=== PATIENT | female | born 1990 | race Caucasian/White ===

== ENCOUNTER → 2019-09-02 11:01 | Outpatient (BNVA) | payer OTHER, MEDICAID, SELFPAY | PROVIDERS: Visit Provider Obstetrics & Gynecology | DX: Z30.017 Encounter for initial prescription of implantable subdermal contraceptive (principal) | CPT/HCPCS: 81025 ==

== ENCOUNTER 2019-09-11 18:21 | Emergency (ER) | payer OTHER, MEDICAID, SELFPAY ==
[2019-09-11 18:29] VITALS: BP 118/71; PULSE 80; RESP 12; TEMP 36.9; O2SAT 100; BMI 29.2
--- NOTE | 2019-09-11 18:46 | W.ED.EXTPRO ---
HPI - Extremity Problem General: Chief complaint: Extremity Injury, Upper Stated complaint: control implant complications Time Seen by Provider: 09/11/19 18:42 History of Present Illness: HPI Narrative: Patient meli hurt her arm at work couple days ago and she had Implanon implant done a week ago and she wants to make sure that she did not injure that. Her arm does hurt she is scheduled to see a work comp doc tomorrow for the arm injury. MD Complaint: extremity pain Onset (ago): day(s) Pain Consistency: constant Location: left and upper extremity Severity scale (1-10): 3 Quality: aching Radiation: proximal and distal Relieving factors: immobilization Exacerbating factors: range of motion Associated symptoms: Deny chest pain, fever(s) or rash Review of Systems Const: Denies: fever(s), chills or body aches Eyes: Denies: change in vision or blurry vision ENMT: Denies: throat pain or nasal congestion Card: Denies: chest pain or dyspnea on exertion Resp: Denies: dyspnea, productive cough or non-productive cough GI: Denies: abdominal pain, nausea or vomiting Musc: Reports: extremity pain (Left arm pain left shoulder pain left forearm pain) Skin/Breast: Reports: other (Some bruising to left arm); Denies: rash Neuro: Denies: headache(s) Psych: Denies: anxiety or depression Wan/Lymph: Denies: easy bruising PFSH ED PFSH: Family History Father CAD (coronary artery disease) Hyperlipidemia Hypertension Stroke Mother Hyperlipidemia Thyroid condition Denies family history of Diabetes Clotting disorder Anesthesia complication Bleeding disorder Social History Smoking and tobacco status: former smoker Quit status (tobacco): has quit using tobacco Year quit tobacco: 05/07/2019 Alcohol intake: never Physical Exam Const: COMMON NORMALS: no acute distress, average body habitus and patient oriented x3 HENMT: COMMON NORMALS: normocephalic HEAD & SCALP: normal to inspection and normocephalic FACE & SINUS: normal facial exam Eye: COMMON NORMALS: conjunctivae normal GENERAL EYE: appearance normal, both eyes and all related structures CONJUNCTIVA: Yes conjunctivae normal Neck/C-Spine: COMMON NORMALS: no JVD Chest: COMMONS NORMALS: normal inspection of the chest Resp: COMMON NORMALS: normal respiratory effort and clear to auscultation bilaterally AUSCULTATION: clear to auscultation bilaterally Cardio: COMMON NORMALS: no JVD, regular rate and regular rhythm RATE: regular rate RHYTHM: regular rhythm GI: COMMON NORMALS: Normal to inspection, nondistended, normoactive bowel sounds present Extremity: COMMON NORMALS: normal to inspection and full ROM NARRATIVE EXTREMITY EXAM: Implanon feels intact approximately 3 to 4 inches long solid no breaks identified in palpation of it arm has full range of motion Neuro: COMMON NORMALS: patient oriented x3 Course Vital Signs: Vital signs: Vital Signs Temperature 98.5 F 09/11/19 18:29 Pulse Rate 80 09/11/19 18:29 Respiratory Rate 12 09/11/19 18:29 Blood Pressure 118/71 09/11/19 18:29 Pulse Oximetry 100 09/11/19 18:29 Discharge Plan Discharge Patient Disposition: Home Clinical Impression: Arm pain, left Condition: Stable Prescriptions: No Action pantoprazole [Protonix] 40 mg tablet,delayed release (DR/EC) 40 mg PO DAILY RF: 0 multivitamin Capsule 1 cap PO DAILY RF: 0 Discharge Orders: Discharge Order (Routine); Ordered 09/11/19 Ordered By: Rubio Velez Discharge Diet: Usual diet Discharge Activity: Resume usual activity Activity Restrictions/Additional Instructions: Follow-up with your work comp doctor as prescribed for your arm injury you sustained at work. Can apply ice to the arm take Tylenol ibuprofen for discomfort. Coding Level of Care Code ED Lead Game Designer for Kirit Valadez
== END 2019-09-11 19:15 | disposition home or self-care (01) ==
PROVIDERS: Emergency Provider Nurse Practitioner Family
DX: M79.602 Pain in left arm (principal); Z87.891 Personal history of nicotine dependence
CPT/HCPCS: 12345; 99281

== ENCOUNTER → 2019-09-12 11:16 | Outpatient (BNVA) | payer OTHER, SELFPAY | PROVIDERS: Visit Provider Nurse Practitioner Family | DX: M79.602 Pain in left arm (principal) | CPT/HCPCS: 73060; 73090 ==

== ENCOUNTER → 2019-10-02 15:26 | Outpatient (BNVA) | payer OTHER, MEDICAID, SELFPAY | PROVIDERS: Visit Provider Obstetrics & Gynecology | DX: N90.7 Vulvar cyst (principal) | CPT/HCPCS: 88305 ==

== ENCOUNTER → 2019-11-25 08:34 | Outpatient (BNVA) | payer OTHER, MEDICAID, SELFPAY | PROVIDERS: Visit Provider Psychiatry & Neurology Psychiatry | DX: F43.12 Post-traumatic stress disorder, chronic (principal); F33.1 Major depressive disorder, recurrent, moderate; F41.1 Generalized anxiety disorder; F10.11 Alcohol abuse, in remission | CPT/HCPCS: 99204 ==

== ENCOUNTER → 2019-12-23 07:38 | Outpatient (BNVA) | payer OTHER, MEDICAID, SELFPAY | PROVIDERS: Visit Provider Psychiatry & Neurology Psychiatry | DX: F41.1 Generalized anxiety disorder (principal); F33.1 Major depressive disorder, recurrent, moderate; F43.12 Post-traumatic stress disorder, chronic; F10.11 Alcohol abuse, in remission; F60.3 Borderline personality disorder | CPT/HCPCS: 99213 ==

== ENCOUNTER → 2020-02-24 16:58 | Outpatient (BNVA) | payer OTHER, MEDICAID, SELFPAY | PROVIDERS: Visit Provider Family Medicine | DX: K29.70 Gastritis, unspecified, without bleeding (principal); R53.83 Other fatigue; R45.0 Nervousness; Z83.3 Family history of diabetes mellitus; Z83.49 Family history of other endocrine, nutritional and metabolic diseases; Z13.6 Encounter for screening for cardiovascular disorders | CPT/HCPCS: 80053; 80061; 83036; 83690; 84439; 84443; 84481; 85025 ==

== ENCOUNTER → 2020-03-02 08:06 | Outpatient (BNVA) | payer OTHER, MEDICAID, SELFPAY | PROVIDERS: Visit Provider Psychiatry & Neurology Psychiatry | DX: F43.12 Post-traumatic stress disorder, chronic (principal); F33.1 Major depressive disorder, recurrent, moderate; F41.1 Generalized anxiety disorder; F10.11 Alcohol abuse, in remission | CPT/HCPCS: 99214 ==

== ENCOUNTER → 2020-03-08 10:50 | Outpatient (BNVA) | payer OTHER, MEDICAID, SELFPAY | PROVIDERS: Visit Provider Nurse Practitioner Family | DX: J11.1 Influenza due to unidentified influenza virus with other respiratory manifestations (principal) | CPT/HCPCS: 87400; 87635 ==

== ENCOUNTER → 2020-04-13 07:57 | Outpatient (BNVA) | payer OTHER, MEDICAID, SELFPAY | PROVIDERS: Visit Provider Psychiatry & Neurology Psychiatry | DX: F43.12 Post-traumatic stress disorder, chronic (principal); F33.1 Major depressive disorder, recurrent, moderate; F41.1 Generalized anxiety disorder; F10.11 Alcohol abuse, in remission | CPT/HCPCS: 99213 ==

== ENCOUNTER → 2020-05-18 18:00 | Outpatient (BNVA) | payer OTHER, MEDICAID, SELFPAY | PROVIDERS: Visit Provider Family Medicine | DX: E03.9 Hypothyroidism, unspecified (principal); R10.31 Right lower quadrant pain; K59.04 Chronic idiopathic constipation; F33.1 Major depressive disorder, recurrent, moderate | CPT/HCPCS: 80053; 83690; 84439; 84443; 84481; 85025 ==

== ENCOUNTER → 2020-07-20 10:13 | Outpatient (BNVA) | payer OTHER, MEDICAID, SELFPAY | PROVIDERS: Visit Provider Family Medicine | DX: E03.9 Hypothyroidism, unspecified (principal); R10.31 Right lower quadrant pain | CPT/HCPCS: 82784; 83516; 84439; 84443; 84481 ==

== ENCOUNTER → 2020-10-11 12:00 | Outpatient (BNVA) | payer OTHER, MEDICAID, SELFPAY | PROVIDERS: Visit Provider Family Medicine | DX: R10.31 Right lower quadrant pain (principal); K59.04 Chronic idiopathic constipation; F41.1 Generalized anxiety disorder; F33.1 Major depressive disorder, recurrent, moderate; E03.9 Hypothyroidism, unspecified; B37.3 Candidiasis of vulva and vagina; R31.9 Hematuria, unspecified; G43.909 Migraine, unspecified, not intractable, without status migrainosus | CPT/HCPCS: 81000; 87086 ==

== ENCOUNTER → 2020-10-27 11:35 | Outpatient (BNVA) | payer OTHER, MEDICAID, SELFPAY | PROVIDERS: Visit Provider Nurse Practitioner Family | DX: Z20.822 Contact with and (suspected) exposure to COVID-19 (principal) | CPT/HCPCS: 87426; 87635 ==

== ENCOUNTER → 2021-03-22 14:25 | Outpatient (BNVA) | payer OTHER, MEDICAID, SELFPAY | PROVIDERS: Visit Provider Family Medicine | DX: E03.9 Hypothyroidism, unspecified (principal); Z13.6 Encounter for screening for cardiovascular disorders; Z13.1 Encounter for screening for diabetes mellitus | CPT/HCPCS: 80053; 80061; 84439; 84443; 84481; 85025 ==

== ENCOUNTER 2021-04-15 14:15 | Emergency (ER) | payer OTHER, MEDICAID, SELFPAY ==
[2021-04-15 14:44] VITALS: BMI 34.3
[2021-04-15 14:47] VITALS: O2SAT 99
--- NOTE | 2021-04-15 15:11 | ED_ITS ---
HPI - COVID General: Chief Complaint: COVID symptoms Stated Complaint: N/V/D/ Time Seen by Provider: 04/15/21 14:49 Triage information: No fever, cough or shortness of breath . No known COVID + exposure last 14 days History of Present Illness: Patient is a 30-year-old female comes to the ED with abdominal pain nausea and vomiting. Patient has a past surgical history of cholecystectomy. Symptoms started 3 days ago with abdominal pain. She says the abdominal pain was in the right lower quadrant. It is described as a sharp pain and she rates it currently a 5 out of 10 when she is laying still, but it increases with movement. Today patient has had nausea and vomiting and thrown up multiple times today. Endorses some body aches and generalized weakness. Patient has not been able to keep any fluids down since she got up this morning. COVID 19 common symptoms: positive body aches, nausea and vomiting; negative fever(s), chills, non-productive cough, productive cough, dyspnea, fatigue, headache(s), throat pain, nasal congestion or diarrhea COVID 19 other sytmptoms: negative chest pain COVID Results: SARS-CoV-2 Antigen (Rapid) Negative (Negative) 10/27/20 11:50 10/27/20 SARS-CoV-2 RNA (RT-PCR) Not detected (NOT DETECTED) 10/27/20 11:35 10/27/20 Review of Systems Const: Reports: body aches; Denies: fever(s), chills or fatigue Eyes: Denies: change in vision or eye discomfort ENMT: Denies: throat pain, odynophagia, nasal discharge or nasal congestion Card: Denies: chest pain, palpitations, edema, swelling of feet/ankles, dyspnea on exertion or orthopnea Resp: Denies: dyspnea, productive cough or non-productive cough GI: Reports: abdominal pain, nausea and vomiting; Denies: diarrhea, constipation or hematochezia : Denies: flank pain, dysuria or hematuria Musc: Denies: neck pain, back pain or extremity swelling Skin/Breast: Denies: rash or new lesions Neuro: Denies: headache(s), numbness in extremities or weakness in extremities PFS ED PFSH: Medical History Constipation Surgical History H/O section S/P cholecystectomy 2014 Family History Father CAD (coronary artery disease) Hyperlipidemia Hypertension Stroke Mother Hyperlipidemia Thyroid condition Denies family history of Diabetes Clotting disorder Anesthesia complication Bleeding disorder Social History Smoking and tobacco status: former smoker Quit status (tobacco): has quit using tobacco Year quit tobacco: 05/07/2019 Second hand smoke exposure: No Alcohol intake: never History of recent travel: No Female Reproductive History: Spontaneous abortions: No Physical Exam Const: COMMON NORMALS: no acute distress, patient oriented x3 and alert GENERAL APPEARANCE: cooperative and comfortable HENMT: COMMON NORMALS: normocephalic HEAD & SCALP: normocephalic MOUTH: Normal oral and palatal mucosa present THROAT: posterior oropharynx normal and uvula midline Neck/C-Spine: COMMON NORMALS: supple GENERAL: Yes normal visual inspection Resp: COMMON NORMALS: normal respiratory effort, No retractions, No use of accessory muscles and clear to auscultation bilaterally AUSCULTATION: clear to auscultation bilaterally Cardio: COMMON NORMALS: regular rate, regular rhythm, S1 normal heart sound present, S2 normal heart sound present, No gallops present (Cardio), No clicks present (Cardio), No murmurs present (Cardio) and Peripheral pulses 2+ throughout RATE: regular rate RHYTHM: regular rhythm HEART SOUNDS: S1 normal heart sound present and S2 normal heart sound present PERIPHERAL PULSE S: Peripheral pulses 2+ throughout GI: COMMON NORMALS: Normal to inspection, nondistended, normoactive bowel sounds present, Soft to palpation and no masses PALPATION: Yes Soft to palpation and Yes Tenderness to palpation present (GI) Details: RLQ : COMMON NORMALS: Yes no CVA tenderness BLADDER/KIDNEY EXAM: Yes no CVA tenderness Back/Pelvis: COMMON NORMALS: no CVA tenderness Extremity: COMMON NORMALS: normal to inspection and no pedal edema Neuro: COMMON NORMALS: patient oriented x3 and moves all extremities SENSORIUM/ORIENTATION: Yes alert Skin: GENERAL SKIN EXAM: dry skin Course Vital Signs: Vital signs: Vital Signs Pulse Rate 81 04/15/21 18:03 Respiratory Rate 18 04/15/21 18:03 Blood Pressure 111/79 04/15/21 18:03 Pulse Oximetry 98 04/15/21 18:03 [facility] - COVID Medical Decision Making Patient is a 30-year-old female comes to the ED with abdominal pain, nausea and vomiting. Vitals are stable. She has some palpable right lower quadrant tenderness. Rest of exam is benign. Labs are unremarkable. CT of abdomen pelvis showed no acute findings. Patient was given IV fluids, Reglan and morphine. Her symptoms improved and she had no episodes of emesis here in the ED. Patient was diagnosed with abdominal pain and discharged home with a prescription for Zofran for nausea. Patient was told to follow-up with PCP in 5 to 7 days for reevaluation. Return to ED precautions given. Patient understood and agreed with plan. Lab Data I reviewed the patient's lab results. : 04/15/21 15:00 04/15/21 15:00 Radiology Impressions Abdomen/Pelvis CT 04/15/21 15:18 IMPRESSION: 1. No acute abnormality identified in the abdomen or pelvis. COMMENTS: Consistent with the [employer]'s Incidental Findings Committee white paper (J Am Sarbjit Radiol 2018): Any incidental renal lesion less than 1 cm or classified as too small to characterize, or any incidental cystic renal lesion characterized as simple-appearing, is likely benign. No follow-up imaging is recommended for these lesions per consensus recommendations based on imaging criteria. Laboratory Results WBC 9.1 10^3/uL (4.0-10.0) 04/15/21 15:00 RBC 4.80 10^6/uL (4.1-5.3) 04/15/21 15:00 Hgb 14.4 g/dL (11.5-15.3) 04/15/21 15:00 Hct 42.7 % (37.0-47.0) 04/15/21 15:00 MCV 89.0 fl (81-99) 04/15/21 15:00 MCH 30.0 pg (28.0-34.0) 04/15/21 15:00 MCHC 33.7 g/dL (30.0-36.0) 04/15/21 15:00 RDW 11.9 % (12.1-15.1) L 04/15/21 15:00 Plt Count 312 10^3/cmm (130-400) 02/25/22 15:00 MPV 9.2 fL (7.4-10.4) 04/15/21 15:00 Neut % (Auto) 56.7 % 04/15/21 15:00 Lymph % (Auto) 31.5 % 04/15/21 15:00 Cache % (Auto) 7.4 % 04/15/21 15:00 Eos % (Auto) 3.1 % 04/15/21 15:00 Baso % (Auto) 0.9 % 04/15/21 15:00 Neut # (Auto) 5.14 10^3/uL (1.8-7.7) 04/15/21 15:00 Lymph # (Auto) 2.9 10^3/uL (0.8-4.8) 04/15/21 15:00 Cache # (Auto) 0.7 10^3/uL (0.2-0.9) 04/15/21 15:00 Eos # (Auto) 0.3 10^3/uL (0.0-0.8) 04/15/21 15:00 Baso # (Auto) 0.1 10^3/uL (0.0-0.1) 04/15/21 15:00 Nucleated RBC % (auto) 0 % 04/15/21 15:00 Nucleated RBCs # 0.0 /100WBC 04/15/21 15:00 Sodium 138 mmol/L (136-145) 04/15/21 15:00 Potassium 4.1 mmol/L (3.5-5.1) 04/15/21 15:00 Chloride 102 mmol/L (98-107) 04/15/21 15:00 Carbon Dioxide 23 mmol/L (22-29) 04/15/21 15:00 Anion Gap 17.1 (5-19) 04/15/21 15:00 BUN 12 mg/dL (6-20) 04/15/21 15:00 Creatinine 0.5 mg/dL (0.5-0.9) 04/15/21 15:00 GFR Calculation 143.9 mL/min (90-130) H 04/15/21 15:00 Glucose 98 mg/dL (65-115) 04/15/21 15:00 Calculated Osmolality 286 mOsm/kg (285-295) 04/15/21 15:00 Calcium 9.9 mg/dL (8.5-10.5) 04/15/21 15:00 Total Bilirubin 0.4 mg/dL (0.15-1.2) 04/15/21 15:00 AST 21 U/L (0-32) 04/15/21 15:00 ALT 17 U/L (0-33) 04/15/21 15:00 Alkaline Phosphatase 84 IU/L (35-105) 04/15/21 15:00 Total Protein 7.2 g/dL (6.6-8.7) 04/15/21 15:00 Albumin 4.5 g/dL (3.5-5.2) 04/15/21 15:00 Globulin 2.7 g/dL (1.3-4.6) 04/15/21 15:00 Lipase 45 U/L (13-60) 04/15/21 15:00 HCG, Qual Negative (Negative) 04/15/21 15:00 Urine Color Yellow (Yellow) 04/15/21 15:00 Urine Appearance Hazy (CLEAR) A 04/15/21 15:00 Urine pH 6 (5-7) 04/15/21 15:00 Ur Specific [place] 1.020 (1.005-1.030) 04/15/21 15:00 Urine Protein Neg (Negative) 04/15/21 15:00 Urine Glucose (UA) Norm (Normal) 04/15/21 15:00 Urine Ketones Negative (Negative) 04/15/21 15:00 Urine Blood Neg (Negative) 04/15/21 15:00 Urine Nitrate Negative (Negative) 04/15/21 15:00 Urine Bilirubin Neg (Negative) 04/15/21 15:00 Urine Urobilinogen Neg mg/dL (Negative) 04/15/21 15:00 Ur Leukocyte Esterase Negative (Negative) 04/15/21 15:00 Urine RBC Rare /hpf (0-2) 04/15/21 15:00 Urine WBC Rare /hpf (0-5) 04/15/21 15:00 Ur Squamous Epith Cells 15-25 /hpf (0-5) H 04/15/21 15:00 Amorphous Sediment Not Reportable 04/15/21 15:00 Urine Bacteria 1+ /hpf (NONE) H 04/15/21 15:00 SARS-CoV-2 Antigen (Rapid) Negative (Negative) 10/27/20 11:50 10/27/20 SARS-CoV-2 RNA (RT-PCR) Not detected (NOT DETECTED) 10/27/20 11:35 10/27/20 Discharge Plan Discharge Patient Disposition: Home Clinical Impression: Abdominal pain Qualifiers: Abdominal location: right lower quadrant Qualified Code(s): R10.31 - Right lower quadrant pain Condition: Stable Prescriptions: New ondansetron 4 mg tablet,disintegrating 4 mg PO Q8H PRN (Reason: nausea and vomiting) Qty: 20 0RF No Action albuterol sulfate 90 mcg/actuation HFA aerosol inhaler 2 puff inhalation Q6H PRN (Reason: shortness of breath or wheezing) Qty: 8.5 0RF hydroxyzine HCl 50 mg tablet 50 mg PO QID PRN (Reason: anxiety) Qty: 120 2RF rizatriptan [Maxalt-INVENTORY CONTROL ASSISTANT] 10 mg tablet,disintegrating 10 mg PO Q2H PRN (Reason: migraine headache) Qty: 9 2RF Rx Instructions: may repeat once 2 hours after first dose.do not exceed 2 doses/24 hrs.take earliest onset omeprazole 20 mg capsule,delayed release(DR/EC) 20 mg PO BID 30 Days Qty: 60 5RF Nexplanon 68 mg implant 1 implant SUBDERMAL .EVERY 3 YEARS 0RF Multivitamin Gummies 200 mcg Tablet,Chewable 2 tab PO DAILY 0RF Collagen Plus Biotin 3 tab PO BEDTIME 0RF amitriptyline 25 mg tablet 25 mg PO BEDTIME 0RF Discharge Orders: Discharge ED (Routine); Ordered 04/15/21 Ordered By: Jonatan Kaiser Referrals: Kari Mckeon MD [Primary Care Provider] - Discharge Diet: Advance as tolerated and Clear Liquid Discharge Activity: Increase activity as tolerated Patient Instructions: Abdominal Pain (ED) Activity Restrictions/Additional Instructions: Follow-up with medical provider as directed in 5-7 days for reevaluation. Take medications as prescribed. Make sure you drink plenty fluids and stay hydrated. Return to the ER or your medical provider if condition worsens. Please read and understand discharge instructions. Thank you for choosing [facility] for your healthcare needs today. Please realize this is an emergency room and that we are providing you with a medical screening exam and this may not be complete and all inclusive of all the testing and or work up that you may need to determine your ailment or severity of your illness. It is very important that you follow up as instructed or that you return to the Emergency Department should you have concerns or if your condition changes or worsens in any way. Coding Level of Care Code ED Child Psychologist for Kirit Valadez Exam Comprehensive
[2021-04-15 15:17] LABS: Basophils # 0.1 10^3/uL (0.0-0.1); Basophils % 0.9 %; Eosinophils # 0.3 10^3/uL (0.0-0.8); Eosinophils % 3.1 %; Hematocrit 42.7 % (37.0-47.0); Hemoglobin 14.4 g/dL (11.5-15.3); Lymphocytes # 2.9 10^3/uL (0.8-4.8); Lymphocytes % 31.5 %; Mean Corpuscular HGB Conc 33.7 g/dL (30.0-36.0); Mean Platelet Volume 9.2 fL (7.4-10.4); Monocytes # 0.7 10^3/uL (0.2-0.9); Monocytes % 7.4 %; Neutrophils # 5.14 10^3/uL (1.8-7.7); Neutrophils % 56.7 %; Nucleated Red Blood Cells % 0 %; Platelet Count 312 10^3/cmm (130-400); Red Cell Distribution Width 11.9 % (12.1-15.1); White Blood Count 9.1 10^3/uL (4.0-10.0)
--- NOTE | 2021-04-15 15:18 | CTR_ITS ---
PROCEDURE INFORMATION: Exam: CT Abdomen And Pelvis With Contrast Exam date and time: 04/15/2021 3:18 PM Age: 30 years old Clinical indication: Abdominal pain; Generalized; Prior surgery; Surgery date: 6+ months; Surgery type: Gb; Patient HX: C/O abd pain w n/v; Additional info: Rlq abdominal pain w/ n/v TECHNIQUE: Imaging protocol: Computed tomography of the abdomen and pelvis with contrast. Radiation optimization: All CT scans at this facility use at least one of these dose optimization techniques: automated exposure control; mA and/or kV adjustment per patient size (includes targeted exams where dose is matched to clinical indication); or iterative reconstruction. Contrast material: OMNI 300; Contrast volume: 95 ml; Contrast route: INTRAVENOUS (IV); COMPARISON: CT abdomen pelvis w con* [id number] 11/15/2016 7:16 PM RADIATION DOSE METRICS: Total DLP (mGy-cm): 1738.37 FINDINGS: Liver: Normal. No mass. Gallbladder and bile ducts: Cholecystectomy. Dilatation of the extrahepatic bile ducts is consistent with reservoir effect. Pancreas: Normal. No ductal dilation. Spleen: Normal. No splenomegaly. Adrenal glands: Normal. No mass. Kidneys and ureters: Hypodense lesion in the right kidney is too small to characterize but is most likely a cyst. No follow-up imaging is recommended. The kidneys are otherwise unremarkable. No calculus or hydronephrosis. Stomach and bowel: Mild diverticulosis in the splenic flexure portion of the colon. No diverticulitis. The remainder of the colon, stomach, and small bowel are unremarkable. No wall thickening or obstruction. Appendix: The appendix is visualized and is normal. Intraperitoneal space: Trace pelvic ascites. No free peritoneal air. Vasculature: Unremarkable. No abdominal aortic aneurysm. Lymph nodes: Unremarkable. No enlarged lymph nodes. Urinary bladder: Unremarkable as visualized. Reproductive: The uterus and ovaries are normal. Bones/joints: Unremarkable. No acute fracture. Soft tissues: Unremarkable. CT/CT abdomen pelvis w con* [id number] IMPRESSION: 1. No acute abnormality identified in the abdomen or pelvis. COMMENTS: Consistent with the [employer]'s Incidental Findings Committee white paper (J Am Sarbjit Radiol 2018): Any incidental renal lesion less than 1 cm or classified as too small to characterize, or any incidental cystic renal lesion characterized as simple-appearing, is likely benign. No follow-up imaging is recommended for these lesions per consensus recommendations based on imaging criteria.
[2021-04-15 15:29] VITALS: RESP 18
[2021-04-15] MEDS: morphine 4 mg/mL SDV 1 mL IVP ×2 (15:29→17:18)
[2021-04-15] MEDS: ondansetron 2 mg/ML SDV 2 mL 4 MG IVP (15:30)
[2021-04-15 15:31] LABS: HCG, Serum Qual Negative (Negative)
[2021-04-15] MEDS: sodium chloride 0.9% 1,000 ML 999 ML IV (15:32)
[2021-04-15 15:37] LABS: Alanine Aminotransferase 17 U/L (0-33); Albumin Level 4.5 g/dL (3.5-5.2); Alkaline Phosphatase 84 IU/L (35-105); Aspartate Amino Transferase 21 U/L (0-32); Blood Urea Nitrogen 12 mg/dL (6-20); Calcium 9.9 mg/dL (8.5-10.5); Carbon Dioxide 23 mmol/L (22-29); Chloride 102 mmol/L (98-107); Creatinine Clr Calc Pharmacy 177.8551; Globulin 2.7 g/dL (1.3-4.6); Glomerular Filtration Rate 143.9 mL/min (90-130); Glucose 98 mg/dL (65-115); Lipase 45 U/L (13-60); Osmolality Calculated 286 mOsm/kg (285-295); Sodium 138 mmol/L (136-145); Total Bilirubin 0.4 mg/dL (0.15-1.2); Total Protein 7.2 g/dL (6.6-8.7)
[2021-04-15 15:41] LABS: Add Urine Culture? No; Add Urine Microscopic? YES; Anion Gap 17.1 (5-19); Bacteria Urine 1+ /hpf; Bilirubin Urine Neg (Negative); Blood Urine Neg (Negative); Glucose Urine UA Norm (Normal); Ketones Urine Negative (Negative); Leukocyte Esterase Urine Negative (Negative); Nitrate Urine Negative (Negative); Potassium 4.1 mmol/L (3.5-5.1); Protein Urine Neg (Negative); RBC Urine RARE /hpf (0-2); Squamous Epithelial Cell Urine 15-25 /hpf (0-5); Urine Appearance Hazy (CLEAR); Urine Color Yellow (Yellow); Urobilinogen Urine Neg (Negative); WBC Urine RARE /hpf (0-5); pH Urine 6 (5-7)
[2021-04-15 16:17] VITALS: BP 99/63; PULSE 81; RESP 17; O2SAT 98
[2021-04-15] MEDS: iohexol 300 mg/mL 100 mL Btl IV (16:27)
[2021-04-15 17:18] VITALS: RESP 16
[2021-04-15] MEDS: sodium chloride 0.9% 500 ML 999 ML IV (17:19)
[2021-04-15 17:21] VITALS: BP 109/71; PULSE 75; RESP 17; O2SAT 99
[2021-04-15 18:03] VITALS: BP 111/79; PULSE 81; RESP 18; O2SAT 98
== END 2021-04-15 18:05 | disposition home or self-care (01) ==
PROVIDERS: Emergency Provider Physician Assistant; PCP Family Medicine
DX: R10.31 Right lower quadrant pain (principal); Z87.891 Personal history of nicotine dependence
CPT/HCPCS: 74177; 80053; 81001; 83690; 84703; 85025; 96361; 96374; 96375; 96376; 99284; J2270; J2405; J7030; J7040; Q9967

== ENCOUNTER 2021-04-21 13:08 | Emergency (ER) | payer OTHER, MEDICAID, SELFPAY ==
[2021-04-21] VITALS (8 sets, daily range): BP systolic 115–142; BP diastolic 69–102; PULSE 74–96; RESP 16–18; TEMP 36.7–37.2; O2SAT 95–99; BMI 34.3
--- NOTE | 2021-04-21 13:09 | W.ED.ABDPA2 ---
HPI - Abdominal Pain General: Chief Complaint: Abdominal Pain Stated Complaint: ABD PAIN Time Seen by Provider: 04/21/21 13:09 History of Present Illness: Ms. Stephen is a 30-year-old lady with history of GERD, thyroid disorder, psychiatric disorder who presents to the emergency department due to abdominal pain and generalized weakness. Symptom onset was approximately 2 weeks ago without specific known provoking factor. She initially had right lower quadrant pain associated with generalized malaise some nausea and vomiting. She previously presented to the emergency department on 04/15 and had negative work-up at that time. Symptoms were improved with treatment and she was discharged with antiemetic. Since that time however she has had continued symptoms. She endorses still mostly cramping/aching right lower quadrant pain with moderate intensity however it now radiates across the abdomen as well. She continues to have nausea vomiting. She denies associated changes in bowel movements though since cholecystectomy has had variable bowel function. Additionally she reports significant weakness throughout her entire body including multiple falls with lightheadedness. Overall course of symptoms has been worsening. She does have cough. No other specific changes in health, exacerbating, relieving factors identified. Onset (ago): week(s) Pain Consistency: constant Location: RLQ Severity: moderate Radiation: LUQ, RUQ and LLQ Exacerbating factors: eating Relieving factors: nothing Associated Symptoms: Reports nausea, vomiting and other Review of Systems General: Reports: 10 or more systems reviewed and unremarkable except in HPI and below GI: Reports: nausea, vomiting and other PFS ED PFSH: Medical History Constipation Surgical History H/O section S/P cholecystectomy 2013 Family History Father CAD (coronary artery disease) Hyperlipidemia Hypertension Stroke Mother Hyperlipidemia Thyroid condition Denies family history of Diabetes Clotting disorder Anesthesia complication Bleeding disorder Social History Smoking and tobacco status: former smoker Quit status (tobacco): has quit using tobacco Year quit tobacco: 05/07/2019 Second hand smoke exposure: No Alcohol intake: never History of recent travel: No Female Reproductive History: Spontaneous abortions: No Physical Exam Const: COMMON NORMALS: alert GENERAL APPEARANCE: cooperative, well developed and ill appearing (mildly) HENMT: COMMON NORMALS: normocephalic and atraumatic HEAD & SCALP: normocephalic and atraumatic Eye: COMMON NORMALS: conjunctivae normal CONJUNCTIVA: Yes conjunctivae normal SCLERA: sclerae normal Neck/C-Spine: COMMON NORMALS: supple GENERAL: Yes trachea midline Resp: COMMON NORMALS: normal respiratory effort and clear to auscultation bilaterally EFFORT & INSPECTION: Yes able to speak in complete sentences AUSCULTATION: clear to auscultation bilaterally Cardio: COMMON NORMALS: regular rate and regular rhythm RATE: regular rate RHYTHM: regular rhythm GI: COMMON NORMALS: Soft to palpation PALPATION: Yes Soft to palpation, Yes Tenderness to palpation present (GI), No Guarding due to palpation present (GI) and No Rigid due to palpation Extremity: GENERAL: Yes normal exam except as noted and No edema Neuro: COMMON NORMALS: moves all extremities SENSORIUM/ORIENTATION: Yes alert and No Orientation impaired Psych: COMMON NORMALS: mental status grossly normal and Normal thought process present THOUGHT PROCESS: Normal thought process present Course ED course: - Patient was seen and evaluated by me at bedside - Patient placed on cardiac monitors, IV access obtained - Initial evaluation notable for exam as above -Analgesia, antiemetic, IV fluids given - Labs notable for no leukocytosis. Metabolic panel with mild evidence of dehydration. Lipase is mildly elevated. No evidence of urinary tract infection. - Imaging notable for no evidence of pathology on chest x-ray. CT head obtained due to fall, dizziness, head strike and was negative for acute intracranial hemorrhage or traumatic injury. CT abdomen pelvis without evidence of acute pathology to explain patient's symptoms, pancreatic structures appear normal and there is no specific epigastric tenderness palpation which would fit pancreatitis criteria. - Upon serial reexamination after treatment the patient was improved after repeated medication. Patient tolerated p.o. - Based on patient history, evaluation, labs, and imaging as interpreted the most likely cause of the patient's condition is dehydration, nausea, and vomiting, unspecified abdominal pain - The results of ED evaluation were discussed with the patient including prescriptions and/or symptomatic cares (if applicable) including appropriate and responsible use, followup plan, and return precautions. The patient verbalized understanding and felt safe for discharge. - Patient discharged in satisfactory condition. Note: Click bubbles or prepopulated hewitt in note writing are used for assistance with data collection and billing and are inherently more limited than narrative and other text portions of this note. Please use narrative for additional clinical history and defer to narrative/free test for any case of contradictory information. If information appears in only free text or click bubble it should be considered present or absent as reported. Please contact note tech writer for clarifications of clinical information or contradictory information. MDM is a brief summary, contradictory or erroneous seeming information should be clarified and full note should be reviewed. Vital Signs: Vital signs: Vital Signs Temperature 98.0 F 04/21/21 18:34 Pulse Rate 83 04/21/21 18:34 Respiratory Rate 18 04/21/21 18:34 Blood Pressure 121/89 04/21/21 19:07 Pulse Oximetry 97 04/21/21 19:07 MDM - Abdominal Pain Medical Decision Making 30-year-old lady with history of abdominal surgeries presenting with nausea, vomiting, pain, dehydration and syncope. Patient improved after treatment and no acute pathology requiring hospitalization at this time. Satisfactory for outpatient management. Medical Records I reviewed the patient's medical records. Lab Data I reviewed the patient's lab results. : 04/21/21 14:17 04/21/21 14:17 Labs/Radiology: Radiology Impressions Abdomen/Pelvis CT 04/21/21 13:28 IMPRESSION: 1. Normal appendix in the RIGHT lower quadrant. No evidence of acute appendicitis. 2. Multifollicular ovaries bilaterally. LEFT ovarian cyst measuring 2.2 x 1.9 cm. 3. Small amount of free fluid in the pelvis appears new from previous. 4. Prior cholecystectomy. 5. No other significant findings. Chest X-Ray 04/21/21 13:28 Impression: Negative chest. Head CT 04/21/21 13:28 IMPRESSION: 1. No evidence of intracranial hemorrhage or mass effect. 2. Normal dos santos-white differentiation. 3. No acute intracranial findings. Laboratory Results WBC 9.1 10^3/uL (4.0-10.0) 04/21/21 14:17 RBC 4.65 10^6/uL (4.1-5.3) 04/21/21 14:17 Hgb 14.2 g/dL (11.5-15.3) 04/21/21 14:17 Hct 42.0 % (37.0-47.0) 04/21/21 14:17 MCV 90.3 fl (81-99) 04/21/21 14:17 MCH 30.5 pg (28.0-34.0) 04/21/21 14:17 MCHC 33.8 g/dL (30.0-36.0) 04/21/21 14:17 RDW 11.9 % (12.1-15.1) L 04/21/21 14:17 Plt Count 317 10^3/cmm (130-400) 04/21/21 14:17 MPV 9.2 fL (7.4-10.4) 04/21/21 14:17 Neut % (Auto) 50.9 % 04/21/21 14:17 Lymph % (Auto) 36.0 % 04/21/21 14:17 [place] % (Auto) 7.4 % 04/21/21 14:17 Eos % (Auto) 4.3 % 04/21/21 14:17 Baso % (Auto) 1.0 % 04/21/21 14:17 Neut # (Auto) 4.62 10^3/uL (1.8-7.7) 04/21/21 14:17 Lymph # (Auto) 3.3 10^3/uL (0.8-4.8) 04/21/21 14:17 [place] # (Auto) 0.7 10^3/uL (0.2-0.9) 04/21/21 14:17 Eos # (Auto) 0.4 10^3/uL (0.0-0.8) 04/21/21 14:17 Baso # (Auto) 0.1 10^3/uL (0.0-0.1) 04/21/21 14:17 Nucleated RBC % (auto) 0 % 04/21/21 14:17 Nucleated RBCs # 0.0 /100WBC 04/21/21 14:17 Sodium 134 mmol/L (136-145) L 04/21/21 14:17 Potassium 4.0 mmol/L (3.5-5.1) 04/21/21 14:17 Chloride 103 mmol/L (98-107) 04/21/21 14:17 Carbon Dioxide 21 mmol/L (22-29) L 04/21/21 14:17 Anion Gap 14.0 (5-19) 04/21/21 14:17 BUN 8 mg/dL (6-20) 04/21/21 14:17 Creatinine 0.5 mg/dL (0.5-0.9) 04/21/21 14:17 GFR Calculation 143.9 mL/min (90-130) H 04/21/21 14:17 Glucose 89 mg/dL (65-115) 04/21/21 14:17 Calculated Osmolality 276 mOsm/kg (285-295) L 04/21/21 14:17 Calcium 8.6 mg/dL (8.5-10.5) 04/21/21 14:17 Magnesium 2.2 mg/dL (1.7-2.3) 04/21/21 14:17 Total Bilirubin 0.5 mg/dL (0.15-1.2) 04/21/21 14:17 AST 21 U/L (0-32) 04/21/21 14:17 ALT 19 U/L (0-33) 04/21/21 14:17 Alkaline Phosphatase 74 IU/L (35-105) 04/21/21 14:17 Creatine Kinase 150 U/L (26-192) 04/21/21 14:17 Total Protein 7.1 g/dL (6.6-8.7) 04/21/21 14:17 Albumin 4.3 g/dL (3.5-5.2) 04/21/21 14:17 Globulin 2.8 g/dL (1.3-4.6) 04/21/21 14:17 Lipase 147 U/L (13-60) H 04/21/21 14:17 TSH 4.07 uIU/mL (0.27-4.20) 04/21/21 14:17 HCG, Qual Negative (Negative) 04/21/21 14:15 Urine Color Yellow (Yellow) 04/21/21 14:15 Urine Appearance Clear (CLEAR) 04/21/21 14:15 Urine pH 6.5 (5-7) 04/21/21 14:15 Ur Specific [place] 1.020 (1.005-1.030) 04/21/21 14:15 Urine Protein Neg (Negative) 04/21/21 14:15 Urine Glucose (UA) Norm (Normal) 04/21/21 14:15 Urine Ketones Negative (Negative) 04/21/21 14:15 Urine Blood Neg (Negative) 04/21/21 14:15 Urine Nitrate Negative (Negative) 04/21/21 14:15 Urine Bilirubin Neg (Negative) 04/21/21 14:15 Urine Urobilinogen Neg mg/dL (Negative) 04/21/21 14:15 Ur Leukocyte Esterase Negative (Negative) 04/21/21 14:15 EKG Data EKG 1: I personally reviewed and interpreted this EKG as follows: EKG interpretation date: 04/21/21 EKG interpretation time: 14:15 Interpretation: Twelve-lead EKG shows a regular rhythm at a rate of 76. RI interval 146, QRS duration 76, QTc 383. Normal axis. Interpretation: Sinus rhythm. Discharge Plan Discharge Patient Disposition: Home Clinical Impression: Abdominal pain, Dehydration, Nausea & vomiting, Elevated lipase Condition: Stable Prescriptions: New Reglan 10 mg tablet 10 mg PO Q6H PRN (Reason: nausea and vomiting) Qty: 4 0RF No Action albuterol sulfate 90 mcg/actuation HFA aerosol inhaler 2 puff inhalation Q6H PRN (Reason: shortness of breath or wheezing) Qty: 8.5 0RF hydroxyzine HCl 50 mg tablet 50 mg PO QID PRN (Reason: anxiety) Qty: 120 2RF rizatriptan [Maxalt-HEATER FURNACE] 10 mg tablet,disintegrating 10 mg PO Q2H PRN (Reason: migraine headache) Qty: 9 2RF Rx Instructions: may repeat once 2 hours after first dose.do not exceed 2 doses/24 hrs.take earliest onset omeprazole 20 mg capsule,delayed release(DR/EC) 20 mg PO BID 30 Days Qty: 60 5RF Nexplanon 68 mg implant 1 implant SUBDERMAL .EVERY 3 YEARS 0RF Multivitamin Gummies 200 mcg Tablet,Chewable 2 tab PO DAILY 0RF Collagen Plus Biotin 3 tab PO BEDTIME 0RF amitriptyline 25 mg tablet 25 mg PO BEDTIME 0RF ondansetron 4 mg tablet,disintegrating 4 mg PO Q8H PRN (Reason: nausea and vomiting) Qty: 20 0RF hyoscyamine sulfate 0.125 mg tablet 0.125 mg PO DAILY 0RF Discharge Orders: Discharge ED (Routine); Ordered 04/21/21 Ordered By: Ambrocio Solares Referrals: Kari Mckeon MD [Primary Care Provider] - Discharge Diet: Advance as tolerated and Clear Liquid Discharge Activity: Increase activity as tolerated Patient Instructions: Pancreatitis (ED), Abdominal Pain (ED), Opioid Safety Activity Restrictions/Additional Instructions: Thank you for visiting the emergency department. You were seen and evaluated for abdominal pain, nausea, vomiting and associated symptoms. You were found to be dehydrated. The exact cause your pain is unclear, your lipase was mildly elevated however you do not fit classic definition of pancreatitis. I would expect symptoms to improve. Please return to the emergency department for worsening symptoms, inability to tolerate oral intake, or anything else that you are concerned about and feel needs emergency department evaluation. Stand Alone Forms: Work/School Release Coding Level of Care Code ED Director Medicare Sales for [employer] Fwd Exam Comprehensive
--- NOTE | 2021-04-21 13:28 | CT_ITS ---
WS: [id number] CT HEAD TECHNIQUE: Noncontrast CT of the head obtained from the skullbase to the vertex. CLINICAL INFORMATION: fall, dizzy, headstrike COMPARISON: None. DLP: 952.[address] scans at [facility] use at least one of these dose optimization techniques: automated e xposure control; mA and/or kV adjustment per patient size (includes targeted exams where dose is matc hed to clinical indication); or iterative reconstruction. FINDINGS: No evidence of intracranial hemorrhage or mass effect. Ventricular system and basal cisterns are kenny nt. No extra-axial fluid collections. No evidence of mass or mass effect. Normal dos santos-white different iation. Paranasal sinuses and mastoid air cells are well aerated. .Normal visualized soft tissues. CT/CT head wo con* [id number] IMPRESSION: 1. No evidence of intracranial hemorrhage or mass effect. 2. Normal dos santos-white differentiation. 3. No acute intracranial findings.
--- NOTE | 2021-04-21 13:28 | CT_ITS ---
WS: [id number] CT ABDOMEN PELVIS TECHNIQUE: Contrast-enhanced CT of the abdomen and pelvis with coronal and sagittal reformatted image s. CLINICAL INFORMATION: RLQ pain, n/v/d COMPARISON: April 15, 2021 DLP: 1855.[address] scans at [facility] use at least one of these dose optimization techniques: automated e xposure control; mA and/or kV adjustment per patient size (includes targeted exams where dose is matc hed to clinical indication); or iterative reconstruction. FINDINGS: Mild diffuse fatty infiltration of the liver. Cholecystectomy clips. Normal GE junction. Bibasilar at electasis. Adrenal glands are normal. Normal renal parenchymal enhancement. No hydronephrosis. Normal pancreatic parenchymal enhancement. Dilated common bile duct likely physiologic postcholecyste ctomy unchanged. Normal portal vein and splenic vein. Normal caliber abdominal aorta. Small amount of free fluid in the pelvis. Normal sigmoid colon. No evidence of high-grade small or la rge bowel obstruction. Normal appendix in the RIGHT lower quadrant. No evidence of acute appendicitis . Small fat-containing umbilical hernia. Multifollicular ovaries bilaterally. LEFT ovarian cyst measu ring 2.3 x 1.9 CM. Normal lumbar spine. CT/CT abdomen pelvis w con* [id number] IMPRESSION: 1. Normal appendix in the RIGHT lower quadrant. No evidence of acute appendici tis. 2. Multifollicular ovaries bilaterally. LEFT ovarian cyst measuring 2.2 x 1.9 cm. 3. Small amount of free fluid in the pelvis appears new from previous. 4. Prior cholecystectomy. 5. No other significant findings.
--- NOTE | 2021-04-21 13:28 | XR_ITS ---
WS: [id number] Portable AP upright chest, 04/21/2021 Clinical Data: cough Comparison: Acute abdomen series, 05/06/2018. Findings: No nodules, masses or effusions are seen. The heart is normal. The pulmonary vascularity is not increased. No pneumonia or pneumothorax is seen. XR/XR chest 1V portable [id number] Impression: Negative chest.
--- NOTE | 2021-04-21 13:29 | ECG_ITS ---
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 Measurements Intervals [place] Rate: 76 P: 65 MS: 146 QRS: 77 QRSD: 76 T: 51 QT: 353 QTc: 398 Interpretive Statements SINUS RHYTHM No previous ECG available for comparison Electronically Signed On 04-21-2021 17:46:26 CLOTH MENDER by Kassandra Tom M.D. [id number]
[2021-04-21] MEDS: morphine 4 mg/mL SDV 1 mL IVP ×2 (14:21→15:39)
[2021-04-21] MEDS: ondansetron 2 mg/ML SDV 2 mL 4 MG IVP (14:21)
[2021-04-21 14:24] LABS: Add Urine Microscopic? NO; Charge for UA Resulting for Rev
[2021-04-21 14:28] LABS: Basophils # 0.1 10^3/uL (0.0-0.1); Eosinophils # 0.4 10^3/uL (0.0-0.8); Eosinophils % 4.3 %; Hemoglobin 14.2 g/dL (11.5-15.3); Lymphocytes # 3.3 10^3/uL (0.8-4.8); Mean Corpuscular HGB Conc 33.8 g/dL (30.0-36.0); Mean Corpuscular Hemoglobin 30.5 pg (28.0-34.0); Mean Corpuscular Volume 90.3 fl (81-99); Mean Platelet Volume 9.2 fL (7.4-10.4); Monocytes # 0.7 10^3/uL (0.2-0.9); Monocytes % 7.4 %; Neutrophils # 4.62 10^3/uL (1.8-7.7); Neutrophils % 50.9 %; Nucleated Red Blood Cells % 0 %; Platelet Count 317 10^3/cmm (130-400); Red Blood Count 4.65 10^6/uL (4.1-5.3); Red Cell Distribution Width 11.9 % (12.1-15.1); White Blood Count 9.1 10^3/uL (4.0-10.0)
[2021-04-21 14:37] LABS: Bilirubin Urine Neg (Negative); Blood Urine Neg (Negative); Glucose Urine UA Norm (Normal); HCG Qualitative Urine. Negative (Negative); Ketones Urine Negative (Negative); Leukocyte Esterase Urine Negative (Negative); Nitrate Urine Negative (Negative); Protein Urine Neg (Negative); Urine Appearance Clear (CLEAR); Urine Color Yellow (Yellow); Urobilinogen Urine Neg (Negative); pH Urine 6.5 (5-7)
[2021-04-21] MEDS: iohexol 300 mg/mL 100 mL Btl IV (14:52)
[2021-04-21 14:58] LABS: Alanine Aminotransferase 19 U/L (0-33); Albumin Level 4.3 g/dL (3.5-5.2); Alkaline Phosphatase 74 IU/L (35-105); Aspartate Amino Transferase 21 U/L (0-32); Blood Urea Nitrogen 8 mg/dL (6-20); Calcium 8.6 mg/dL (8.5-10.5); Carbon Dioxide 21 mmol/L (22-29); Chloride 103 mmol/L (98-107); Creatine Phosphokinase 150 U/L (26-192); Creatinine Clr Calc Pharmacy 177.8551; Globulin 2.8 g/dL (1.3-4.6); Glomerular Filtration Rate 143.9 mL/min (90-130); Glucose 89 mg/dL (65-115); Lipase 147 U/L (13-60); Magnesium 2.2 mg/dL (1.7-2.3); Osmolality Calculated 276 mOsm/kg (285-295); Sodium 134 mmol/L (136-145); Thyroid Stimulating Hormone 4.07 uIU/mL (0.27-4.20); Total Bilirubin 0.5 mg/dL (0.15-1.2); Total Protein 7.1 g/dL (6.6-8.7)
[2021-04-21] MEDS: lactated ringers 1,000 ML 999 ML IV (15:00)
[2021-04-21] MEDS: sodium chloride 0.9% 1,000 ML 999 ML IV (17:15)
[2021-04-21] MEDS: metoclopramide 5 mg/mL SDV 2 mL 10 MG IVP (17:37)
== END 2021-04-21 19:32 | disposition home or self-care (01) ==
PROVIDERS: Emergency Provider Emergency Medicine; PCP Family Medicine
DX: R10.9 Unspecified abdominal pain (principal); R11.2 Nausea with vomiting, unspecified; E86.0 Dehydration; R79.89 Other specified abnormal findings of blood chemistry; Z87.891 Personal history of nicotine dependence
CPT/HCPCS: 70450; 71045; 74177; 80053; 81003; 81025; 82550; 83690; 83735; 84443; 85025; 93005; 96361; 96374; 96375; 96376; 99284; J2270; J2405; J2765; J7030; Q9967

== ENCOUNTER → 2021-05-17 13:32 | Outpatient (BNVA) | payer OTHER, MEDICAID, SELFPAY | PROVIDERS: PCP Family Medicine; Visit Provider Family Medicine | DX: M54.16 Radiculopathy, lumbar region (principal); R10.31 Right lower quadrant pain; G43.109 Migraine with aura, not intractable, without status migrainosus; K21.9 Gastro-esophageal reflux disease without esophagitis | CPT/HCPCS: 72100 ==

== ENCOUNTER 2021-05-18 16:15 | Emergency (ER) | payer OTHER, MEDICAID, SELFPAY ==
[2021-05-18 17:04] VITALS: BP 110/75; PULSE 79; RESP 15; TEMP 36.7; O2SAT 100; BMI 36.3
[2021-05-18 18:21] LABS: Add Urine Microscopic? NO; Charge for UA Resulting for Rev; HCG Qualitative Urine. Negative (Negative)
--- NOTE | 2021-05-18 18:22 | W.ED.ABDPA2 ---
HPI - Abdominal Pain General: Chief Complaint: Abdominal Pain Stated Complaint: ABD Pain Time Seen by Provider: 05/18/21 18:16 History of Present Illness: Presents with a longstanding history abdominal discomfort. Said is been worse over the last month and a half. Has Had abdominal surgeries work-ups and no causes found she had a cholecystectom and . She currently has been worked up for the abdominal pain for the last month and a half and has been to the ER. Patient denies nausea vomiting fever chills bowel or bladder problems. She has had loose stools and has been considered for IBS. Associated Symptoms: Reports bloating; Denies chills, fever(s), nausea and vomiting Review of Systems Const: Denies: fever(s), chills or body aches Eyes: Denies: eye discomfort ENMT: Denies: throat pain Card: Denies: chest pain Resp: Denies: dyspnea GI: Reports: abdominal pain and bloating; Denies: nausea or vomiting Skin/Breast: Denies: rash Neuro: Denies: headache(s) Psych: Denies: depression or suicidal ideation PFS ED PFSH: Medical History Constipation Surgical History H/O section S/P cholecystectomy 2013 Family History Father CAD (coronary artery disease) Hyperlipidemia Hypertension Stroke Mother Hyperlipidemia Thyroid condition Denies family history of Diabetes Clotting disorder Anesthesia complication Bleeding disorder Social History Smoking and tobacco status: former smoker Quit status (tobacco): has quit using tobacco Year quit tobacco: 05/07/2019 Second hand smoke exposure: No Alcohol intake: never History of recent travel: No Female Reproductive History: Spontaneous abortions: No Physical Exam Const: COMMON NORMALS: no acute distress, patient oriented x3 and alert HENMT: COMMON NORMALS: normocephalic and external ears normal HEAD & SCALP: normocephalic EXTERNAL EAR: Yes external ears normal Eye: COMMON NORMALS: EOMs intact bilaterally Neck/C-Spine: COMMON NORMALS: no JVD Resp: COMMON NORMALS: normal respiratory effort and No use of accessory muscles Cardio: COMMON NORMALS: no JVD GI: INSPECTION: Yes normal to inspection AUSCULTATION: Yes normoactive bowel sounds PALPATION: Yes Tenderness to palpation present (GI) (Generalized) OTHER: Mild generalized abdominal discomfort no specific area. Patient points to the right lower quadrant where is tender more than others Extremity: COMMON NORMALS: normal to inspection and full ROM Neuro: COMMON NORMALS: patient oriented x3 SENSORIUM/ORIENTATION: Yes alert Psych: COMMON NORMALS: mental status grossly normal Skin: COMMON NORMALS: no rashes or lesions noted GENERAL SKIN EXAM: no rashes or lesions noted Course Vital Signs: Vital signs: Vital Signs Temperature 98.1 F 05/18/21 17:04 Pulse Rate 79 05/18/21 17:04 Respiratory Rate 15 05/18/21 17:04 Blood Pressure 110/75 05/18/21 17:04 Pulse Oximetry 100 05/18/21 17:04 MDM - Abdominal Pain Medical Decision Making Patient with chronic abdominal pain has been seen multiple times for it. Laboratory studies were negative for any concerning findings tonight. Do suspect she might have adhesions with the way she describes her pain she also has been told she might have IBS. Patient is follow-up with her primary care provider and see about getting referral to surgeon to see for possible adhesions evaluation. Lab Data : 05/18/21 18:40 05/18/21 18:40 Labs/Radiology: Laboratory Results WBC 9.9 10^3/uL (4.0-10.0) 05/18/21 18:40 RBC 4.66 10^6/uL (4.1-5.3) 05/18/21 18:40 Hgb 14.0 g/dL (11.5-15.3) 05/18/21 18:40 Hct 42.7 % (37.0-47.0) 05/18/21 18:40 MCV 91.6 fl (81-99) 05/18/21 18:40 MCH 30.0 pg (28.0-34.0) 05/18/21 18:40 MCHC 32.8 g/dL (30.0-36.0) 05/18/21 18:40 RDW 11.9 % (12.1-15.1) L 05/18/21 18:40 Plt Count 307 10^3/cmm (130-400) 05/18/21 18:40 MPV 9.0 fL (7.4-10.4) 05/18/21 18:40 Neut % (Auto) 53.7 % 05/18/21 18:40 Lymph % (Auto) 34.8 % 05/18/21 18:40 [place] % (Auto) 6.8 % 05/18/21 18:40 Eos % (Auto) 3.7 % 05/18/21 18:40 Baso % (Auto) 0.7 % 05/18/21 18:40 Neut # (Auto) 5.33 10^3/uL (1.8-7.7) 05/18/21 18:40 Lymph # (Auto) 3.5 10^3/uL (0.8-4.8) 05/18/21 18:40 [place] # (Auto) 0.7 10^3/uL (0.2-0.9) 05/18/21 18:40 Eos # (Auto) 0.4 10^3/uL (0.0-0.8) 05/18/21 18:40 Baso # (Auto) 0.1 10^3/uL (0.0-0.1) 05/18/21 18:40 Nucleated RBC % (auto) 0 % 05/18/21 18:40 Nucleated RBCs # 0.0 /100WBC 05/18/21 18:40 Sodium 136 mmol/L (136-145) 05/18/21 18:40 Potassium 3.7 mmol/L (3.5-5.1) 05/18/21 18:40 Chloride 100 mmol/L (98-107) 05/18/21 18:40 Carbon Dioxide 25 mmol/L (22-29) 05/18/21 18:40 Anion Gap 14.7 (5-19) 05/18/21 18:40 BUN 10 mg/dL (6-20) 05/18/21 18:40 Creatinine 0.5 mg/dL (0.5-0.9) 05/18/21 18:40 GFR Calculation 143.9 mL/min (90-130) H 05/18/21 18:40 Glucose 87 mg/dL (65-115) 05/18/21 18:40 Calculated Osmolality 280 mOsm/kg (285-295) L 05/18/21 18:40 Calcium 9.3 mg/dL (8.5-10.5) 05/18/21 18:40 Total Bilirubin 0.4 mg/dL (0.15-1.2) 05/18/21 18:40 AST 16 U/L (0-32) 05/18/21 18:40 ALT 16 U/L (0-33) 05/18/21 18:40 Alkaline Phosphatase 82 IU/L (35-105) 05/18/21 18:40 Total Protein 7.4 g/dL (6.6-8.7) 05/18/21 18:40 Albumin 4.3 g/dL (3.5-5.2) 05/18/21 18:40 Globulin 3.1 g/dL (1.3-4.6) 05/18/21 18:40 Lipase 21 U/L (13-60) 05/18/21 18:40 HCG, Qual Negative (Negative) 05/18/21 18:10 Urine Color Yellow (Yellow) 05/18/21 18:10 Urine Appearance Clear (CLEAR) 05/18/21 18:10 Urine pH 5 (5-7) 05/18/21 18:10 Ur Specific [place] 1.025 (1.005-1.030) 05/18/21 18:10 Urine Protein Neg (Negative) 05/18/21 18:10 Urine Glucose (UA) Norm (Normal) 05/18/21 18:10 Urine Ketones Negative (Negative) 05/18/21 18:10 Urine Blood Neg (Negative) 05/18/21 18:10 Urine Nitrate Negative (Negative) 05/18/21 18:10 Urine Bilirubin Neg (Negative) 05/18/21 18:10 Urine Urobilinogen Norm mg/dL (Negative) 05/18/21 18:10 Ur Leukocyte Esterase Negative (Negative) 05/18/21 18:10 Discharge Plan Discharge Patient Disposition: Home Clinical Impression: Chronic abdominal pain Condition: Stable Prescriptions: New Celebrex 100 mg capsule 100 mg PO BID Qty: 20 0RF No Action albuterol sulfate 90 mcg/actuation HFA aerosol inhaler 2 puff inhalation Q6H PRN (Reason: shortness of breath or wheezing) Qty: 8.5 0RF hydroxyzine HCl 50 mg tablet 50 mg PO QID PRN (Reason: anxiety) Qty: 120 2RF rizatriptan [Maxalt-CALL CENTER AGENT] 10 mg tablet,disintegrating 10 mg PO Q2H PRN (Reason: migraine headache) Qty: 9 2RF Rx Instructions: may repeat once 2 hours after first dose.do not exceed 2 doses/24 hrs.take earliest onset omeprazole 20 mg capsule,delayed release(DR/EC) 20 mg PO BID 30 Days Qty: 60 5RF Nexplanon 68 mg implant 1 implant SUBDERMAL .EVERY 3 YEARS 0RF Multivitamin Gummies 200 mcg Tablet,Chewable 2 tab PO DAILY 0RF Collagen Plus Biotin 3 tab PO BEDTIME 0RF amitriptyline 25 mg tablet 25 mg PO BEDTIME 0RF ondansetron 4 mg tablet,disintegrating 4 mg PO Q8H PRN (Reason: nausea and vomiting) Qty: 20 0RF hyoscyamine sulfate 0.125 mg tablet 0.125 mg PO DAILY 0RF Reglan 10 mg tablet 10 mg PO Q6H PRN (Reason: nausea and vomiting) Qty: 4 0RF Discharge Orders: Discharge ED (Routine); Ordered 05/18/21 Ordered By: Rubio Velez Referrals: Kari Mckeon MD [Primary Care Provider] - Discharge Diet: Usual diet Discharge Activity: Resume usual activity Patient Instructions: Abdominal Pain (ED) Activity Restrictions/Additional Instructions: Follow-up with medical provider as directed. Take medications as prescribed. Return to the ER or your medical provider if condition worsens. Please read and understand discharge instructions. If any questions ask please. Visit with primary care provider and see if possibility of getting a referral to surgeon for scope to see if he have adhesions in your abdomen from previous abdominal surgery. Coding Level of Care Code ED Air Reduction Equipment Operator for [place] Fwd Exam Comprehensive
[2021-05-18 18:28] LABS: Bilirubin Urine Neg (Negative); Blood Urine Neg (Negative); Glucose Urine UA Norm (Normal); Ketones Urine Negative (Negative); Leukocyte Esterase Urine Negative (Negative); Nitrate Urine Negative (Negative); Protein Urine Neg (Negative); Specific Gravity, Urine 1.025 (1.005-1.030); Urine Appearance Clear (CLEAR); Urine Color Yellow (Yellow); Urobilinogen Urine Norm (Negative); pH Urine 5 (5-7)
[2021-05-18 18:52] LABS: Basophils # 0.1 10^3/uL (0.0-0.1); Basophils % 0.7 %; Eosinophils # 0.4 10^3/uL (0.0-0.8); Eosinophils % 3.7 %; Hematocrit 42.7 % (37.0-47.0); Lymphocytes # 3.5 10^3/uL (0.8-4.8); Lymphocytes % 34.8 %; Mean Corpuscular HGB Conc 32.8 g/dL (30.0-36.0); Mean Corpuscular Volume 91.6 fl (81-99); Monocytes # 0.7 10^3/uL (0.2-0.9); Monocytes % 6.8 %; Neutrophils # 5.33 10^3/uL (1.8-7.7); Neutrophils % 53.7 %; Nucleated Red Blood Cells % 0 %; Platelet Count 307 10^3/cmm (130-400); Red Blood Count 4.66 10^6/uL (4.1-5.3); Red Cell Distribution Width 11.9 % (12.1-15.1); White Blood Count 9.9 10^3/uL (4.0-10.0)
[2021-05-18 19:19] LABS: Alanine Aminotransferase 16 U/L (0-33); Albumin Level 4.3 g/dL (3.5-5.2); Alkaline Phosphatase 82 IU/L (35-105); Anion Gap 14.7 (5-19); Aspartate Amino Transferase 16 U/L (0-32); Blood Urea Nitrogen 10 mg/dL (6-20); Calcium 9.3 mg/dL (8.5-10.5); Carbon Dioxide 25 mmol/L (22-29); Chloride 100 mmol/L (98-107); Globulin 3.1 g/dL (1.3-4.6); Glomerular Filtration Rate 143.9 mL/min (90-130); Glucose 87 mg/dL (65-115); Lipase 21 U/L (13-60); Osmolality Calculated 280 mOsm/kg (285-295); Potassium 3.7 mmol/L (3.5-5.1); Sodium 136 mmol/L (136-145); Total Bilirubin 0.4 mg/dL (0.15-1.2); Total Protein 7.4 g/dL (6.6-8.7)
== END 2021-05-18 19:48 | disposition home or self-care (01) ==
PROVIDERS: Emergency Medicine; Emergency Provider Nurse Practitioner Family; PCP Family Medicine
DX: R10.9 Unspecified abdominal pain (principal); G89.29 Other chronic pain
CPT/HCPCS: 80053; 81003; 81025; 83690; 85025; 99283

== ENCOUNTER → 2021-06-27 09:00 | Outpatient (BNVA) | payer OTHER, MEDICAID, SELFPAY | PROVIDERS: PCP Family Medicine; Visit Provider Obstetrics & Gynecology | DX: R10.2 Pelvic and perineal pain (principal); G89.29 Other chronic pain; Z01.812 Encounter for preprocedural laboratory examination; Z30.09 Encounter for other general counseling and advice on contraception | CPT/HCPCS: 81000; 81025; 86850; 86900 ==

== ENCOUNTER 2021-06-29 08:44 | Day surgery (SDC) | payer OTHER, MEDICAID, SELFPAY ==
[2021-06-24 08:36] VITALS: BMI 35.4
[2021-06-24 09:07] LABS: Basophils # 0.1 10^3/uL (0.0-0.1); Basophils % 0.8 %; Eosinophils # 0.2 10^3/uL (0.0-0.8); Hemoglobin 14.4 g/dL (11.5-15.3); Lymphocytes # 2.1 10^3/uL (0.8-4.8); Lymphocytes % 32.2 %; Mean Corpuscular HGB Conc 34.3 g/dL (30.0-36.0); Mean Corpuscular Hemoglobin 29.9 pg (28.0-34.0); Mean Corpuscular Volume 87.3 fl (81-99); Mean Platelet Volume 9.4 fL (7.4-10.4); Monocytes # 0.4 10^3/uL (0.2-0.9); Monocytes % 6.1 %; Neutrophils # 3.81 10^3/uL (1.8-7.7); Neutrophils % 57.6 %; Nucleated Red Blood Cells % 0 %; Platelet Count 303 10^3/cmm (130-400); Red Blood Count 4.81 10^6/uL (4.1-5.3); Red Cell Distribution Width 11.8 % (12.1-15.1); White Blood Count 6.6 10^3/uL (4.0-10.0)
--- NOTE | 2021-06-24 09:11 | ANES.PREANE2 ---
Pre-Anesthetic Assessment Height/Weight: Height 1.6 m Weight 90.718 kg Operation Date: 06/29/21 08:25 Proposed Procedures p Laparoscopy 15458/Pelvic pain R10.2/Z30.2/86371(Not Applicable) - Ash Servin MD s Laparoscopic Salpingectomy 39989/pelvic pain R10.2/G89.29(Not Applicable) - Ash Servin MD Familial anesthetic complications: None Was Beta Neto taken within 24 hours: N/A Was Clonidine taken within 24 hours: N/A Social No alcohol (h/o abuse) and No tobacco Exam alert, oriented x 3, clear to auscultation bilaterally and regular rate & rhythm Airway Submandibular: within normal limits Cervical ROM: within normal limits Mallampati: Class II Dentition: full GI Gastroesophageal Reflux Disease Metabolic Morbid Obesity Neuropsych Anxiety, Depression and Headache Anesthetic Plan ASA status: 2 Anesthesia: General Other: ?post op delirium Medications/Allergies Home Medications Medication Instructions Recorded Confirmed Last Taken Type etonogestrel 68 mg subdermal 1 implant SUBDERMAL .EVERY 3 YEARS 10/02/19 06/24/21 Unknown History implant (Nexplanon) each hydroxyzine HCl 50 mg tablet 50 mg PO QID PRN #120 tab 10/11/20 06/24/21 04/12/21 Rx rizatriptan 10 mg disintegrating 10 mg PO Q2H PRN #9 tab 03/22/21 06/24/21 Unknown Rx tablet (Maxalt-PRODUCT SUPPORT REP) Collagen Plus Biotin 3 tab PO BEDTIME 04/15/21 06/24/21 Unknown History amitriptyline 25 mg tablet 25 mg PO BEDTIME 04/15/21 06/24/21 04/20/21 History multivitamin with minerals-folic 2 tab PO DAILY 04/15/21 06/24/21 Unknown History acid 200 mcg chewable tablet (Multivitamin Gummies) ondansetron 4 mg disintegrating 4 mg PO Q8H PRN #20 tab 04/15/21 06/24/21 Unknown Rx tablet pantoprazole 40 mg tablet,delayed 40 mg PO BID 30 Days #60 tab 05/26/21 06/24/21 Unknown Rx release elderberry fruit 200 mg capsule 200 mg PO DAILY 06/24/21 06/24/21 Unknown History Allergies Allergy/AdvReac Type Severity Reaction Status Date / Time hydromorphone [From Dilaudid] Allergy Severe makes me Verified 05/31/21 07:49 feel really strange risperidone [From Risperdal] Allergy Severe causes Verified 05/31/21 07:49 heart to race codeine Allergy Intermediate pancreatic Verified 05/31/21 07:49 attack PFS Anesthesia Medical History Constipation Surgical History H/O section S/P cholecystectomy 2013 Family History Father CAD (coronary artery disease) Hyperlipidemia Hypertension Stroke Mother Hyperlipidemia Thyroid condition Denies family history of Diabetes Clotting disorder Anesthesia complication Bleeding disorder Social History Smoking and tobacco status: former smoker Quit status (tobacco): has quit using tobacco Year quit tobacco: 05/07/2019 Second hand smoke exposure: No Alcohol intake: never History of recent travel: No Female Reproductive History Spontaneous abortions: No Data Anesthesia : 06/24/21 08:53 06/24/21 08:53 Short CBC 06/24/21 Range/Units 08:53 WBC 6.6 (4.0-10.0) 10^3/uL Hgb 14.4 (11.5-15.3) g/dL Hct 42.0 (37.0-47.0) % MCV 87.3 (81-99) fl Plt Count 303 (130-400) 10^3/cmm Neut % (Auto) 57.6 % Neut # (Auto) 3.81 (1.8-7.7) 10^3/uL Cardiac Studies: No Data to Display
[2021-06-24 09:23] LABS: Anion Gap 16.1 (5-19); Blood Urea Nitrogen 8 mg/dL (6-20); Calcium 9.7 mg/dL (8.5-10.5); Carbon Dioxide 21 mmol/L (22-29); Chloride 103 mmol/L (98-107); Glomerular Filtration Rate 143.9 mL/min (90-130); Glucose 99 mg/dL (65-115); Osmolality Calculated 280 mOsm/kg (285-295); Potassium 4.1 mmol/L (3.5-5.1); Sodium 136 mmol/L (136-145)
[2021-06-29] VITALS (13 sets, daily range): BP systolic 116–156; BP diastolic 72–101; PULSE 72–83; RESP 16–18; TEMP 36.1–36.6; O2SAT 97–100
[2021-06-29] MEDS: scopolamine 1.5 Patch 1 PATCH TRANSDERMA (09:23)
--- NOTE | 2021-06-29 09:30 | W.PM.OPSUD ---
Surgery/Procedure H&P Update DATE OF PROCEDURE: June 29, 2021 DATE H&P PERFORMED: 06/27/21 H&P UPDATE INFORMATION: I have reviewed H&P completed within last 30 days, I have examined patient prior to procedure and No changes to prior documentation PREOP DIAGNOSIS: Chronic pelvic pain, desire permanent sterilization PLANNED PROCEDURE: Operation Date: 06/29/21 10:15 Proposed Procedures p Laparoscopy 81093/Pelvic pain R10.2/Z30.2/96818(Not Applicable) - Ash Servin MD s Laparoscopic Salpingectomy 76309/pelvic pain R10.2/G89.29(Not Applicable) - Ash Servin MD
--- NOTE | 2021-06-29 09:53 | P.ANESUD_ITS ---
Pre-Anesthetic Update Pre-Anesthetic Assessment: Date of Surgery/Procedure: 06/29/21 Preop Jennifer gnosis: Chronic pelvic pain, desire permanent sterilization Proposed Procedure: Operation Date: 06/29/21 10:15 Proposed Procedures p Laparoscopy 06267/Pelvic pain R10.2/Z30.2/51890(Not Applicable) - Ash Servin MD s Laparoscopic Salpingectomy 23315/pelvic pain R10.2/G89.29(Not Applicable) - Ash Servin MD Any changes to Pre-Anesthetic Assessment?: No Last Intake: Intake Last Liquid Date 06/28/21 Last Liquid Time 16:30 Last Solid Date 06/28/21 Last Solid Time 14:00 Vitals: Temperature 97.9 F 06/29/21 09:16 Temperature Source Temporal Artery S can 06/29/21 09:16 Pulse Rate 72 06/29/21 09:16 Respiratory Rate 18 06/29/21 09:16 Blood Pressure 119/84 06/29/21 09:16 Blood Pressure Ramona n 95 06/29/21 09:16 Pulse Oximetry 99 06/29/21 09:16 Oxygen Delivery Me thod 06/29/21 09:16 Exam: Pre-Anes Outpt Exam: alert, oriented x 3, clear to auscultation bilat erally and regular rate & rhythm Cardiac Studies: No Data to Display
[2021-06-29] MEDS: sodium chloride 0.9% 1,000 ML 30 ML IV (10:20)
[2021-06-29] MEDS: sodium chloride 0.9% 500 ML IV (10:20)
[2021-06-29 10:56] LABS: OR HCG Qualitative Urine Negative (Negative)
--- NOTE | 2021-06-29 11:20 | P.OP_ITS ---
Operative Report Date of procedure: June 29, 2021 Pre-op diagnosis: Preop Diagnosis Chronic pelvic pain, desire permanent sterilization Post-op diagnosis: Chronic pelvic pain. Desires permanent sterilization Post-op findings: Mild endometriosis endometriosis Procedure done: Laparoscopic bilateral salpingectomy. Fulguration of endometriosis lesions Specimens removed/disposition: Left and right fallopian tube Surgeon: Ash Servin MD Estimated blood loss (mL): 10 IV fluids (mL): 1,000 Urine output (mL): 150 Complications: None Findings: Mild endometriosis Brief History: Mrs. Stephen 30-year-old female with a history of chronic pelvic pain and desire permanent sterilization Procedure: After informed consent, the patient was taken to the operating room where general anesthesia was administered. She was placed in the dorsal lithotomy position and prepped and draped in sterile fashion. Pre-Procedure Time-Out verifying the correct patient identity, correct procedure verified with consent, correct site and side, correct patient position, availability of correct implants and any special equipment or requirements was performed and acknowledge by the OR team. The patient was examined under anesthesia and found to have a normal uterus with normal adnexa. An open side speculum was placed in the vagina, and the anterior lip of cervix was grasped with the single toothed tenaculum. A uterine manipulator was advanced into the endocervical canal and uterus. The tenaculum was removed after uterine manipulator was secured. The speculum was removed from the vagina. An intraumbilical incision was made with a scalpel. While tenting up on the abdomen, a Verres needle was admitted into the intra-abdominal cavity. A saline drop test was performed and noted to be within normal limits. Pneumoperitoneum was attained with 4 liters of carbon dioxide. The Verres needle was removed. A 5 mm Opitc view trocar and sleeve were admitted into the abdomen and laparoscopic confirmation of location was achieved. A second incision was made 3 cm above the symphysis pubis, and a 5 mm trocar sleeves were admitted into the abdomen under direct laparoscopic visualization without complication. A survey revealed normal abdominal anatomy. A 5 mm blunt probe was advanced through the second trocar sleeve, and light manipulation of ovaries and uterus to assess the posterior aspects was performed. A 10 mm trocar was admitted into the left LLQ under direct laparoscopic visualization without complication. The pelvic survey shows normal uterus, left and right adnexa. 2 Endometrioyic lesions noted on peritoneium on anterior abdominal wall. The lesions were graspped with the Voyant device and while tenting the peritoneum the lesions were fulgurated with bipolar Voyant forceps. The left ovary was noted with a follicular cyst. The patient was placed into Trendelenburg position. The fallopian tubes were inspected bilaterally and the fimbriated ends of the fallopian tubes were visualized bilaterally. Attention was then directed to the right side. The tube was grasp with articulating forceps and the fallopian tube and mesosalpinx were grasped and the underlying mesosalpinx was cauterized and cut using the Voyant device. Serial cauterization and cutting was used to separate the fallopian tube from the underlying mesosalpinx until it could be amputated cutting it approximated 2 cm from the cornua. Attention was then turned to the contralateral fallopian tube, which was removed in similar fashion. Both specimens were removed through the trocar and sent to pathology. The instruments were removed. The suprapubic and LLQ trocar ports were removed under direct visualization insuring good hemostasis. The carbon dioxide was allowed to escape from the abdomen. The intraumbilical trocar sleeve was withdrawn under visualization with laparoscope in the sleeve to insure hemostasis. The skin incisions were closed with 3-O Monocryl subcuticular stich and Dermabon d. The instruments were removed from the vagina, and excellent hemostasis was noted. The patient tolerated the procedure well, and sponge, lap and needle count were correct times two. The patient was taken to the recovery room in good condition.
[2021-06-29] MEDS: ondansetron 2 mg/ML SDV 2 mL 4 MG IVP ×2 (11:39→12:07)
[2021-06-29] MEDS: diphenhydrAMINE 50 mg/mL SDV 1mL 12.5 MG IVP (11:47)
--- NOTE | 2021-06-29 12:55 | PC.NURSE ---
Pt voided on bedpan, urine sanguineous in color. Prior to discharge pt voided in bathroom, states it was red in color, c/o 5/10 abdominal pain, states it is my normal abdominal pain.
--- NOTE | 2021-06-29 17:07 | ANE.PACU2 ---
Inpatient post-anesthesia follow up: Airway intact: Yes Vital signs: Temperature 97.5 F Pulse Rate 74 Respiratory Rate 18 Blood Pressure 116/79 Pulse Oximetry 99 Oxygen Delivery Me thod Room Air Oxygen Flow Rate 6 Fraction of Inspir ed Oxygen Hydration adequate: Yes Nausea and vomiting: No Pain level: 2 Mental status: Baseline
--- NOTE | 2021-07-05 07:45 | PC.NURSE ---
Pt called this morning stating she was bleeding this AM @ 0630. Stated she is saturating more than 1 pad an hour. Nurse encouraged patient to go to ER for evaluation. Pt stated What will they do there for me? Anytime I go to the ER they can't do anything for me. Nurse provided further education that if pt if bleeding, patient needs evaluation to determine if further treatment is needed. Pt then stated she would go to [facility] when they open. It was further educated that the patient was adised to go to the ER and understand it is her choice to go to the clinic instead of the ER. Patient verbalized understanding. Will update Dr Servin's office when they open.
== END 2021-06-29 13:20 | disposition home or self-care (01) ==
PROVIDERS: Anesthesiology; PCP Family Medicine; Visit Provider Obstetrics & Gynecology
PROC: (CPT 49320; principal; 2021-06-29 10:05)
PROC: (CPT 58661; 2021-06-29 10:05)
DX: Z30.2 Encounter for sterilization (principal); N80.3 Endometriosis of pelvic peritoneum; E66.01 Morbid (severe) obesity due to excess calories; Z68.35 Body mass index [BMI] 35.0-35.9, adult; Z87.891 Personal history of nicotine dependence
CPT/HCPCS: 58661; 80048; 84703; 85025; 88302; J0690; J1100; J1200; J1885; J2250; J2405; J2704; J3010; J3490; J7030; J7040

== ENCOUNTER 2021-07-05 08:20 | Emergency (ER) | payer OTHER, MEDICAID, SELFPAY ==
[2021-07-05 08:27] VITALS: PULSE 82; RESP 12; TEMP 36.6; O2SAT 99; BMI 35.4
--- NOTE | 2021-07-05 08:54 | ED_ITS ---
HPI - Female Genitourinary General: Chief complaint: Urogenital-Female Stated complaint: Post surgery, alot of bleeding and pain, dizziness Time Seen by Provider: 07/05/21 08:23 Source: patient Mode of arrival: ambulatory Limitations: no limitations History of Present Illness: 30-year-old female presents emergency room with abnormal uterine bleeding. Started having heavy period last couple of days se veral weeks ago she had a tubal ligation and ablation of endometriosis. Called [facility] and was referred to the emergency room. She denies any lightheaded dizziness rapid heart rates or near syncopal episodes. No vomiting or diarrhea no significant abdominal discomfort. MD elicited complaint: vaginal bleeding Pertinent past history: tubal ligation Onset (ago): hour(s) Severity: mild Quality of pain: cramping Consistency: intermittent Vaginal discharge: none Vaginal bleeding: moderate Exacerbating factors: none Relieving factors: none Associated symptoms: Reports vaginal bleeding; Deny abdominal pain, short of breath, fevers/chills, headache(s), nausea, rash, seizures, syncope, vaginal discharge or weakness Treatment prior to arrival: none Review of Systems Const: Denies: fever(s), chills, body aches, change in appetite, fatigue or malaise ENMT: Denies: throat pain, ear or mastoid pain, nasal discharge or nasal congestion Card: Denies: syncope Resp: Denies: dyspnea, productive cough or non-productive cough GI: Denies: abdominal pain or nausea : Denies: vaginal discharge Skin/Breast: Denies: rash or pruritus Neuro: Denies: headache(s) [facility] PFSH: Medical History Constipation Surgical History H/O section S/P cholecystectomy 2013 Family History Father CAD (coronary artery disease) Hyperlipidemia Hypertension Stroke Heart disease Mother Hyperlipidemia Thyroid condition Denies family history of Colon cancer Ovarian cancer Diabetes Clotting disorder Breast cancer Anesthesia complication Bleeding disorder Uterine cancer Social History Smoking and tobacco status: former smoker Quit status (tobacco): has quit using tobacco Year quit tobacco: 05/07/2019 Second hand smoke exposure: No Alcohol intake: never History of recent travel: No Female Reproductive History: Spontaneous abortions: No Physical Exam Const: GENERAL APPEARANCE: cooperative and comfortable ORIENTATIO N/CONSCIOUSNESS: Yes awake, Yes oriented to person, Yes oriented to place and Yes oriented to time HENMT: COMMON NORMALS: normocephalic, atraumatic and hearing grossly normal bilaterally HEAD & SCALP: normocephalic and atraumatic Neck/C-Spine: COMMON NORMALS: no JVD Resp: COMMON NORMALS: normal respiratory effort, No retractions, No use of accessory muscles and clear to auscultation bilaterally AUSCULTATION: clear to auscultation bilaterally Cardio: COMMON NORMALS: no JVD, regular rate, regular rhythm and No murmurs present (Cardio) RATE: regular rate RHYTHM: regular rhythm GI: COMMON NORMALS: Soft to palpation and No hepatosplenomegaly present AUSCULTATION: Yes normoactive bowel sounds PALPATION: Yes Soft to palpation, No Tenderness to palpation present (GI), No Guarding due to palpation present (GI) and Yes No hepatosplenomegaly present : SPECULUM EXAM - VAGINA: Yes vaginal bleeding OB/EXTERNAL & SPECULUM: vaginal bleeding Extremity: COMMON NORMALS: normal to inspection, capillary refill normal, no clubbing, cyanosis or edema, no calf tenderness and no pedal edema Neuro: SENSORIUM/ORIENTATION: Yes oriented to person, Yes oriented to place and Yes oriented to time Skin: COMMON NORMALS: no rashes or lesions noted GENERAL SKIN EXAM: no rashes or lesions noted Course Vital Signs: Vital signs: Vital Signs Temperature 97.8 F 07/05/21 08:27 Pulse Rate 78 07/05/21 10:59 Respiratory Rate 18 07/05/21 10:59 Blood Pressure 124/74 07/05/21 10:59 Pulse Oximetry 99 07/05/21 10:59 [facility] - Female Medical Decision Making Hemoglobin stable. She does have a mild UTI. Will treat with Cipro x5 days. Follow-up with Dr. Servin return if worsens. Also put her on a course of medroxyprogesterone. Warned the patient that the bleeding will stop but will resume when she stops to be Droxia progesterone. Medical Records I reviewed the patient's medical records. Lab Data I reviewed the patient's lab results. : 07/05/21 08:48 07/05/21 08:48 Laboratory Results WBC 12.1 10^3/uL (4.0-10.0) H 07/05/21 08:48 RBC 4.91 10^6/uL (4.1-5.3) 07/05/21 08:48 Hgb 14.8 g/dL (11.5-15.3) 07/05/21 08:48 Hct 44.8 % (37.0-47.0) 07/05/21 08:48 MCV 91.2 fl (81-99) 07/05/21 08:48 MCH 30.1 pg (28.0-34.0) 07/05/21 08:48 MCHC 33.0 g/dL (30.0-36.0) 07/05/21 08:48 RDW 11.8 % (12.1-15.1) L 07/05/21 08:48 Plt Count 317 10^3/cmm (130-400) 07/05/21 08:48 MPV 9.2 fL (7.4-10.4) 07/05/21 08:48 Neut % (Auto) 63.6 % 07/05/21 08:48 Lymph % (Auto) 24.8 % 07/05/21 08:48 Cole % (Auto) 6.0 % 07/05/21 08:48 Eos % (Auto) 3.6 % 07/05/21 08:48 Baso % (Auto) 0.8 % 07/05/21 08:48 Neut # (Auto) 7.70 10^3/uL (1.8-7.7) 07/05/21 08:48 Lymph # (Auto) 3.0 10^3/uL (0.8-4.8) 07/05/21 08:48 Cole # (Auto) 0.7 10^3/uL (0.2-0.9) 07/05/21 08:48 Eos # (Auto) 0.4 10^3/uL (0.0-0.8) 07/05/21 08:48 Baso # (Auto) 0.1 10^3/uL (0.0-0.1) 07/05/21 08:48 Nucleated RBC % (auto) 0 % 07/05/21 08:48 Nucleated RBCs # 0.0 /100WBC 07/05/21 08:48 Sodium 135 mmol/L (136-145) L 07/05/21 08:48 Potassium 4.0 mmol/L (3.5-5.1) 07/05/21 08:48 Chloride 100 mmol/L (98-107) 07/05/21 08:48 Carbon Dioxide 21 mmol/L (22-29) L 07/05/21 08:48 Anion Gap 18.0 (5-19) 07/05/21 08:48 BUN 7 mg/dL (6-20) 07/05/21 08:48 Creatinine 0.5 mg/dL (0.5-0.9) 07/05/21 08:48 GFR Calculation 143.9 mL/min (90-130) H 07/05/21 08:48 Glucose 98 mg/dL (65-115) 07/05/21 08:48 Calculated Osmolality 278 mOsm/kg (285-295) L 07/05/21 08:48 Calcium 9.2 mg/dL (8.5-10.5) 07/05/21 08:48 Urine Color Red (Yellow) 07/05/21 08:48 Urine Appearance Hazy (CLEAR) A 07/05/21 08:48 Urine pH 7 (5-7) 07/05/21 08:48 Ur Specific [place] 1.025 (1.005-1.030) 07/05/21 08:48 Urine Protein 3+ (Negative) H 07/05/21 08:48 Urine Glucose (UA) Trace (Normal) H 07/05/21 08:48 Urine Ketones Negative (Negative) 07/05/21 08:48 Urine Blood 2+ (Negative) H 07/05/21 08:48 Urine Nitrate Positive (Negative) H 07/05/21 08:48 Urine Bilirubin Neg (Negative) 07/05/21 08:48 Urine Urobilinogen 1 mg/dL (Negative) H 07/05/21 08:48 Ur Leukocyte Esterase 2+ (Negative) H 07/05/21 08:48 Urine RBC 25-40 /hpf (0-2) H 07/05/21 08:48 Urine WBC 10-15 /hpf (0-5) H 07/05/21 08:48 Ur Squamous Epith Cells 15-25 /hpf (0-5) H 07/05/21 08:48 Amorphous Sediment Not Reportable 07/05/21 08:48 Urine Bacteria 2+ /hpf (NONE) H 07/05/21 08:48 Urine Mucus 1+ /hpf 07/05/21 08:48 Discharge Plan Discharge Patient Disposition: Home Clinical Impression: Menometrorrhagia Condition: Stable Prescriptions: New medroxyprogesterone 10 mg tablet 10 mg PO DAILY 7 Days Qty: 7 0RF Rx Instructions: begin day 19 of cycle Cipro 250 mg tablet 250 mg PO BID Qty: 10 0RF No Action hydroxyzine HCl 50 mg tablet 50 mg PO QID PRN (Reason: anxiety) Qty: 120 2RF rizatriptan [Maxalt-FASHION BU[employer]ER] 10 mg tablet,disintegrating 10 mg PO Q2H PRN (Reason: migraine headache) Qty: 9 2RF Rx Instructions: may repeat once 2 hours after first dose.do not exceed 2 doses/24 hrs.take earliest onset Nexplanon 68 mg implant 1 implant SUBDERMAL .EVERY 3 YEARS 0RF pantoprazole 40 mg tablet,delayed release (DR/EC) 40 mg PO BID 30 Days Qty: 60 2RF Multivitamin Gummies 200 mcg Tablet,Chewable 2 tab PO DAILY 0RF Collagen Plus Biotin 3 tab PO BEDTIME 0RF amitriptyline 25 mg tablet 25 mg PO BEDTIME 0RF ondansetron 4 mg tablet,disintegrating 4 mg PO Q8H PRN (Reason: nausea and vomiting) Qty: 20 0RF elderberry fruit 200 mg Capsule 200 mg PO DAILY 0RF ibuprofen 800 mg tablet 800 mg PO TID PRN (Reason: pain) Qty: 60 0RF acetaminophen 325 mg capsule 325 mg PO Q4H PRN (Reason: fever or pain) Qty: 60 0RF Discharge Orders: Discharge ED (Routine); Ordered 07/05/21 Ordered By: Jose Alejandro Bob Referrals: Kari Mckeon MD [Primary Care Provider] - Discharge Diet: Usual diet Discharge Activity: Resume usual activity Patient Instructions: Opioid Safety Activity Restrictions/Additional Instructions: Follow-up with Dr. Servin within the next week. Stand Alone Forms: Work/School Release Coding Level of Care Code ED [employer]iler [employer] Operator for Kirit Valadez
[2021-07-05 09:04] LABS: Basophils # 0.1 10^3/uL (0.0-0.1); Basophils % 0.8 %; Eosinophils # 0.4 10^3/uL (0.0-0.8); Eosinophils % 3.6 %; Hematocrit 44.8 % (37.0-47.0); Hemoglobin 14.8 g/dL (11.5-15.3); Lymphocytes % 24.8 %; Mean Corpuscular Hemoglobin 30.1 pg (28.0-34.0); Mean Corpuscular Volume 91.2 fl (81-99); Mean Platelet Volume 9.2 fL (7.4-10.4); Monocytes # 0.7 10^3/uL (0.2-0.9); Neutrophils % 63.6 %; Nucleated Red Blood Cells % 0 %; Platelet Count 317 10^3/cmm (130-400); Red Blood Count 4.91 10^6/uL (4.1-5.3); Red Cell Distribution Width 11.8 % (12.1-15.1); White Blood Count 12.1 10^3/uL (4.0-10.0)
[2021-07-05 09:25] LABS: Blood Urea Nitrogen 7 mg/dL (6-20); Calcium 9.2 mg/dL (8.5-10.5); Carbon Dioxide 21 mmol/L (22-29); Chloride 100 mmol/L (98-107); Glomerular Filtration Rate 143.9 mL/min (90-130); Glucose 98 mg/dL (65-115); Osmolality Calculated 278 mOsm/kg (285-295); Sodium 135 mmol/L (136-145)
[2021-07-05 09:41] LABS: Bilirubin Urine Neg (Negative); Blood Urine 2+ (Negative); Glucose Urine UA Trace (Normal); Ketones Urine Negative (Negative); Nitrate Urine Positive (Negative); Protein Urine 3+ (Negative); Specific Gravity, Urine 1.025 (1.005-1.030); Urine Appearance Hazy (CLEAR); Urine Color Red (Yellow); pH Urine 7 (5-7)
[2021-07-05 09:42] LABS: Add Urine Microscopic? YES; Leukocyte Esterase Urine 2+ (Negative); Urobilinogen Urine 1 mg/dL (Negative)
[2021-07-05 10:05] VITALS: BP 123/80; RESP 16; O2SAT 95
[2021-07-05 10:11] LABS: RBC Urine 25-40 /hpf (0-2)
[2021-07-05 10:13] LABS: Bacteria Urine 2+ /hpf; Mucus Urine 1+ /hpf; Squamous Epithelial Cell Urine 15-25 /hpf (0-5)
[2021-07-05 10:14] LABS: Add Urine Culture? Yes
[2021-07-05 10:59] VITALS: BP 124/74; PULSE 78; RESP 18; O2SAT 99
== END 2021-07-05 11:01 | disposition home or self-care (01) ==
PROVIDERS: Emergency Provider Family Medicine; PCP Family Medicine
DX: N92.1 Excessive and frequent menstruation with irregular cycle (principal); N39.0 Urinary tract infection, site not specified
CPT/HCPCS: 80048; 81001; 85025; 87086; 99283

== ENCOUNTER 2021-08-12 07:35 | Outpatient (CLI) | payer MEDICAID, SELFPAY ==
--- NOTE | 2021-08-12 | US_ITS ---
WS: [id number] TRANSABDOMINAL PELVIC AND TRANSVAGINAL PELVIC ULTRASOUND HISTORY: R10.2 - Pelvic and perineal pain COMPARISON: None available. Uterus: 7.3 cm x 4.8 cm x 3.7 cm. Normal size anteverted uterus. No fibroid or mass. Endometrium: 0.3 cm. Normal homogeneity. No abnormality identified. Right ovary: 3.0 x 2.6 x 4.1 cm. Small ovarian cyst measures 2.4 x 1.9 x 2.7 cm. Normal vascularity w ithin the ovary. Left ovary: 2.7 x 1.7 x 3.2 cm. Normal size and vascularity. There is a tiny hyperechoic nodule withi n the LEFT ovary which may be a hemorrhagic follicle. No free fluid. US/US pelvic with transvaginal IMPRESSION: 1. Normal endometrium. 2. Small simple RIGHT ovarian cyst with a maximum diameter 2.7 cm.
== END 2021-08-12 07:36 | disposition home or self-care (01) ==
LOC: RAD 07:36
PROVIDERS: PCP Family Medicine; Visit Provider Obstetrics & Gynecology
DX: N83.291 Other ovarian cyst, right side (principal); R10.2 Pelvic and perineal pain
CPT/HCPCS: 76830; 76856

== ENCOUNTER → 2021-10-10 12:43 | Outpatient (BNVA) | payer OTHER, MEDICAID, SELFPAY | PROVIDERS: PCP Family Medicine; Visit Provider Nurse Practitioner Family | DX: Z20.822 Contact with and (suspected) exposure to COVID-19 (principal) | CPT/HCPCS: 87426 ==

== ENCOUNTER 2022-02-11 11:44 | Emergency (ER) | payer OTHER, MEDICAID, SELFPAY ==
[2022-02-11 12:12] VITALS: BP 115/69; PULSE 115; RESP 24; TEMP 37.1; O2SAT 99; BMI 35.3
--- NOTE | 2022-02-11 12:13 | ED_ITS ---
HPI - SOB/Dyspnea General: Chief Complaint: Upper Respiratory Infection Stated Complaint: possible flu, SOB Time Seen by Provider: 02/11/22 12:12 History of Present Illness: HPI Narrative: Ms. Stephen is a 31-year-old lady with flu diagnosed 02/08 presented to the emergency department due to worsening illness. She reports symptoms started on the with cough, congestion, aches, fevers. She was seen at outside clinic and given a inhaler and Tamiflu. Despite this symptoms have continued and have worsened. She endorses shortness of breath, cough, aches, headache, congestion, and bilateral ear pain. Chest pain is associated with cough in the middle of her chest. At times he coughs hard enough to be nauseous and have vomiting. Intensity symptoms is moderate to severe. Course has worsened. No other specific changes in health, exacerbating, or alleviating factors identified. Pertinent past history: other (Quit smoking 3 years ago) Onset (ago): day(s) Timing: progressively worsening Severity: moderate Exacerbating factors: exertion and coughing Relieving factors: nothing Associated symptoms: Reports fever(s), myalgias, nausea and other Treatment prior to arrival: bronchodilator and other (Tamiflu) Review of Systems General: Reports: 10 or more systems reviewed and unremarkable except in HPI and below Const: Reports: fever(s) GI: Reports: nausea PFSH ED PFSH: Medical History Constipation Surgical History H/O section S/P cholecystectomy 2013 Family History Father Hyperlipidemia Hypertension Stroke Heart disease Mother Hyperlipidemia Thyroid condition Denies family history of Colon cancer Ovarian cancer Diabetes Breast cancer Uterine cancer Social History Smoking and tobacco status: never smoked Female Reproductive History: Spontaneous abortions: No Physical Exam Const: COMMON NORMALS: alert GENERAL APPEARANCE: cooperative, well developed and ill appearing (Somewhat) HENMT: COMMON NORMALS: normocephalic, atraumatic, external ears normal, EAC's normal and TM's normal bilaterally (Normal landmarks end anatomy, no erythema, no evidence of AOM) HEAD & SCALP: normocephalic and atraumatic EXTERNAL EAR: Yes external ears normal EXTERNAL AUDITORY CANAL: EAC's normal TYMPANIC MEMBRANE: TM's normal bilaterally (Normal landmarks end anatomy, no erythema, no evidence of AOM) THROAT: posterior oropharynx normal OTHER: Minimal tonsillar hypertrophy, no distortion of posterior pharyngeal abnormality or 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 No erythema or exudates. Eye: COMMON NORMALS: conjunctivae normal CONJUNCTIVA: Yes conjunctivae normal SCLERA: sclerae normal Neck/C-Spine: COMMON NORMALS: supple GENERAL: Yes trachea midline Resp: COMMON NORMALS: clear to auscultation bilaterally EFFORT & INSPECTION: Yes able to speak in complete sentences and Yes tachypneic AUSCULTATION: clear to auscultation bilaterally Cardio: COMMON NORMALS: regular rhythm RATE: tachycardic RHYTHM: regular rhythm GI: COMMON NORMALS: Soft to palpation PALPATION: Yes Soft to palpation and No Tenderness to palpation present (GI) Extremity: GENERAL: Yes normal exam except as noted and No edema Neuro: COMMON NORMALS: moves all extremities SENSORIUM/ORIENTATION: Yes alert and No Orientation impaired Psych: COMMON NORMALS: mental status grossly normal and Normal thought process present THOUGHT PROCESS: Normal thought process present Course Vital Signs: Vital signs: Vital Signs Temperature 98.8 F 02/11/22 12:12 Pulse Rate 74 02/11/22 15:45 Respiratory Rate 16 02/11/22 15:45 Blood Pressure 128/71 02/11/22 15:45 Pulse Oximetry 98 02/11/22 15:45 Oxygen Delivery Me thod 02/11/22 12:38 MDM - SOB/Dyspnea Medical Decision Making 31-year-old lady with possible flu presenting with continued/worsening symptoms. Exam as well. Nontoxic however tachycardic and tachypneic. EKG notable for sinus rhythm with nonspecific ST segment abnormalities. No significant hematologic abnormalities. Metabolic panel with some evidence of dehydration. Procalcitonin negative. Chest x-ray with no lobar consolidation or pneumothorax. Patient treated with RT treatment and steroids as well as analgesia and antiemetic and fluids. Significant improved pain level is improved with treatment. Most likely etiology of symptoms continues to be viral illness. Given improvement patient is satisfactory for outpatient management. The results of ED evaluation were discussed with the patient including prescriptions and/or symptomatic cares (if applicable) including appropriate and responsible use, followup plan, and return precautions. The patient verbalized understanding and felt safe for discharge. Medical Records I reviewed the patient's medical records. Lab Data I reviewed the patient's lab results. 02/11/22 13:20 02/11/22 13:20 Labs/Radiology: Radiology Impressions Chest X-Ray 02/11/22 12:24 IMPRESSION: No acute findings. Laboratory Results WBC 9.0 10^3/uL (4.0-10.0) 02/11/22 13:20 RBC 4.90 10^6/uL (4.1-5.3) 02/11/22 13:20 Hgb 14.9 g/dL (11.5-15.3) 02/11/22 13:20 Hct 43.8 % (37.0-47.0) 02/11/22 13:20 MCV 89.4 fl (81-99) 02/11/22 13:20 MCH 30.4 pg (28.0-34.0) 02/11/22 13:20 MCHC 34.0 g/dL (30.0-36.0) 02/11/22 13:20 RDW 12.2 % (12.1-15.1) 02/11/22 13:20 Plt Count 226 10^3/cmm (130-400) 02/11/22 13:20 MPV 9.6 fL (7.4-10.4) 02/11/22 13:20 Neut % (Auto) 74.2 % 02/11/22 13:20 Lymph % (Auto) 20.5 % 02/11/22 13:20 Lynn % (Auto) 4.7 % 02/11/22 13:20 Eos % (Auto) 0.1 % 02/11/22 13:20 Baso % (Auto) 0.2 % 02/11/22 13:20 Neut # (Auto) 6.64 10^3/uL (1.8-7.7) 02/11/22 13:20 Lymph # (Auto) 1.8 10^3/uL (0.8-4.8) 02/11/22 13:20 Lynn # (Auto) 0.4 10^3/uL (0.2-0.9) 02/11/22 13:20 Eos # (Auto) 0.0 10^3/uL (0.0-0.8) 02/11/22 13:20 Baso # (Auto) 0.0 10^3/uL (0.0-0.1) 02/11/22 13:20 Nucleated RBC % (auto) 0 % 02/11/22 13:20 Nucleated RBCs # 0.0 /100WBC 02/11/22 13:20 Sodium 133 mmol/L (136-145) L 02/11/22 13:20 Potassium 3.9 mmol/L (3.5-5.1) 02/11/22 13:20 Chloride 99 mmol/L (98-107) 02/11/22 13:20 Carbon Dioxide 20 mmol/L (22-29) L 02/11/22 13:20 Anion Gap 17.9 (5-19) 02/11/22 13:20 BUN 7 mg/dL (6-20) 02/11/22 13:20 Creatinine 0.5 mg/dL (0.5-0.9) 02/11/22 13:20 GFR Calculation 143.0 mL/min (90-130) H 02/11/22 13:20 Glucose 93 mg/dL (65-115) 02/11/22 13:20 Calculated Osmolality 274 mOsm/kg (285-295) L 02/11/22 13:20 Calcium 9.0 mg/dL (8.5-10.5) 02/11/22 13:20 Total Bilirubin 0.5 mg/dL (0.15-1.2) 02/11/22 13:20 AST 31 U/L (0-32) 02/11/22 13:20 ALT 24 U/L (0-33) 02/11/22 13:20 Alkaline Phosphatase 79 U/L (35-105) 02/11/22 13:20 Total Protein 7.6 g/dL (6.6-8.7) 02/11/22 13:20 Albumin 4.2 g/dL (3.5-5.2) 02/11/22 13:20 Globulin 3.4 g/dL (1.3-4.6) 02/11/22 13:20 Procalcitonin 0.05 ng/mL (0-0.5) 02/11/22 13:20 Influenza Type A Ag negative (Negative) 02/11/22 12:33 Influenza Type B Ag negative (Negative) 02/11/22 12:33 Discharge Plan Discharge Patient Disposition: Home Clinical Impression: Viral respiratory illness, Dehydration, Chest pain Condition: Stable Prescriptions: No Action Nexplanon 68 mg implant 1 implant SUBDERMAL .EVERY 3 YEARS pantoprazole 20 mg tablet,delayed release (DR/EC) 20 mg PO DAILY 30 Days Qty: 30 5RF amitriptyline 25 mg tablet 25 mg PO BEDTIME 30 Days Qty: 30 5RF hydroxyzine HCl 50 mg tablet 50 mg PO TID PRN (Reason: itching) Qty: 90 2RF triamcinolone acetonide 0.1 % cream 1 applic topical DAILY Qty: 454 2RF Rx Instructions: apply to body rash after shower rizatriptan [Maxalt-LEAD TINNER] 10 mg tablet,disintegrating 10 mg PO Q2H MDD 2 doses PRN (Reason: migraine headache) Qty: 9 2RF Rx Instructions: may repeat once 2 hours after first dose oseltamivir [Tamiflu] 75 mg capsule 75 mg PO BID 5 Days Qty: 10 0RF albuterol sulfate 90 mcg/actuation HFA aerosol inhaler 2 puff inhalation Q6H PRN (Reason: shortness of breath or wheezing) Qty: 8.5 0RF [id number]-ukiugiqrj-MM [Bromfed DM] 2-30-10 mg/5 mL syrup 7.5 ml PO Q6H PRN (Reason: cold symptoms) Qty: 160 0RF ibuprofen 800 mg tablet 800 mg PO TID Qty: 21 0RF Multivitamin Gummies 200 mcg Tablet,Chewable 2 tab PO DAILY Collagen Plus Biotin 3 tab PO BEDTIME elderberry fruit 200 mg Capsule 200 mg PO DAILY acetaminophen 325 mg capsule 325 mg PO Q4H PRN (Reason: fever or pain) Qty: 60 0RF Discharge Orders: Discharge ED (Routine); Ordered 02/11/22 Ordered By: Ambrocio Solares Referrals: Kari Mckeon MD [Primary Care Provider] - Discharge Diet: Usual diet Discharge Activity: Increase activity as tolerated Patient Instructions: Chest Pain (ED), Viral Pneumonia (ED), Dehydration (ED) Activity Restrictions/Additional Instructions: Thank you for visiting the emergency department. You were seen and evaluated for generalized illness. The most likely cause of this illness is viral in nature. The treatment for this is supportive. You may use [id number] medications such as acetaminophen and ibuprofen for pain however please do not exceed the daily recommended dosage as listed on the packaging and please keep in mind that many namebrand medications contain the same active ingredients. Please avoid these medications if previously instructed to do so by another physician due to other underlying medical condition. Please follow-up with your primary care provider. Return to the emergency department for worsening symptoms or anything else that you are concerned about a feel needs emergency department evaluation. Coding Level of Care Code ED Pickers Material Handlers for Kirit Valadez Exam Comprehensive
--- NOTE | 2022-02-11 12:24 | XRR_ITS ---
PROCEDURE INFORMATION: Exam: XR Chest Exam date and time: 02/11/2022 12:46 PM Age: 31 years old Clinical indication: Shortness of breath; Additional info: SOB, cough TECHNIQUE: Imaging protocol: Radiologic exam of the chest. Views: 1 view. COMPARISON: CR XR chest 1V portable [id number] 04/21/2021 1:34 PM FINDINGS: Lungs: Unremarkable. No consolidation. Pleural spaces: Unremarkable. No pleural effusion. No pneumothorax. Heart/Mediastinum: Unremarkable. No cardiomegaly. Bones/joints: Unremarkable. XR/XR chest 1V portable [id number] IMPRESSION: No acute findings.
--- NOTE | 2022-02-11 12:25 | ECG_ITS ---
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 Measurements Intervals [facility] Rate: 98 P: 20 [place]: 138 QRS: 48 QRSD: 73 T: 13 QT: 311 QTc: 397 Interpretive Statements SINUS RHYTHM Compared to ECG 04/21/2021 14:08:36 No significant changes Electronically Signed On 02-12-2022 8:28:55 APPLICATION DESIGN ENGINEER by Kavita Owusu M.D. [id number]
[2022-02-11] MEDS: ipratropium-albuterol 3 mL Neb INHALATION (12:37)
[2022-02-11 12:38] VITALS: PULSE 106; RESP 16; O2SAT 99
[2022-02-11 12:44] VITALS: PULSE 105
[2022-02-11 13:23] LABS: Influenza A by IFA negative (Negative); Influenza B by IFA negative (Negative)
[2022-02-11 13:29] LABS: Basophils % 0.2 %; Eosinophils % 0.1 %; Hematocrit 43.8 % (37.0-47.0); Hemoglobin 14.9 g/dL (11.5-15.3); Lymphocytes # 1.8 10^3/uL (0.8-4.8); Lymphocytes % 20.5 %; Mean Corpuscular Hemoglobin 30.4 pg (28.0-34.0); Mean Corpuscular Volume 89.4 fl (81-99); Mean Platelet Volume 9.6 fL (7.4-10.4); Monocytes # 0.4 10^3/uL (0.2-0.9); Monocytes % 4.7 %; Neutrophils # 6.64 10^3/uL (1.8-7.7); Neutrophils % 74.2 %; Nucleated Red Blood Cells % 0 %; Platelet Count 226 10^3/cmm (130-400); Red Cell Distribution Width 12.2 % (12.1-15.1)
[2022-02-11] MEDS: sodium chloride 0.9% 1,000 ML 999 ML IV (13:29)
[2022-02-11] MEDS: ketorolac 30 mg/mL INJ 15 MG IVP (13:30)
[2022-02-11] MEDS: dexamethasone 10 mg/mL INJ IVP (13:30)
[2022-02-11] MEDS: ondansetron 2 mg/ML SDV 2 mL 4 MG IVP (13:30)
[2022-02-11] MEDS: benzonatate 100 mg Capsule PO (13:30)
[2022-02-11 14:01] LABS: Alanine Aminotransferase 24 U/L (0-33); Albumin Level 4.2 g/dL (3.5-5.2); Alkaline Phosphatase 79 U/L (35-105); Blood Urea Nitrogen 7 mg/dL (6-20); Carbon Dioxide 20 mmol/L (22-29); Chloride 99 mmol/L (98-107); Globulin 3.4 g/dL (1.3-4.6); Glucose 93 mg/dL (65-115); Osmolality Calculated 274 mOsm/kg (285-295); Sodium 133 mmol/L (136-145); Total Bilirubin 0.5 mg/dL (0.15-1.2); Total Protein 7.6 g/dL (6.6-8.7)
[2022-02-11 14:06] LABS: Anion Gap 17.9 (5-19); Aspartate Amino Transferase 31 U/L (0-32); Potassium 3.9 mmol/L (3.5-5.1); Procalcitonin 0.05 ng/mL (0-0.5)
[2022-02-11] MEDS: acetaminophen 500 mg Tablet 1000 MG PO (15:12)
[2022-02-11 15:45] VITALS: BP 128/71; PULSE 74; RESP 16; O2SAT 98
== END 2022-02-11 15:45 | disposition home or self-care (01) ==
PROVIDERS: Emergency Provider Emergency Medicine; PCP Family Medicine
DX: B34.9 Viral infection, unspecified (principal); E86.0 Dehydration; R07.9 Chest pain, unspecified
CPT/HCPCS: 71045; 80053; 84145; 85025; 87804; 93005; 94640; 96374; 96375; 99285; J1100; J1885; J2405; J7030

== ENCOUNTER 2022-04-07 14:38 | Outpatient (CLI) | payer OTHER, MEDICAID, SELFPAY ==
--- NOTE | 2022-04-07 15:15 | US_ITS ---
WS: [id number] TRANSABDOMINAL PELVIC AND TRANSVAGINAL PELVIC ULTRASOUND HISTORY: R10.2 - Pelvic and perineal pain COMPARISON: 08/12/2021 Uterus: 7.9 cm x 4.7 cm x 3.9 cm. Anteverted uterus. Normal size. No fibroid or mass. There is a C-se ction scar along the lower uterine segment. Endometrium: 0.7 cm. Normal. No increased vascularity or mass. Right ovary: 2.9 cm x 2.5 cm x 2.8 cm. Normal size. No solid mass or cyst. Normal vascularity. Left ovary: 4.6 cm x 2.7 cm x 3.3 cm. Mildly prominent ovary due to several small follicles. The larg est follicle measures 16 mm. No solid mass. Free fluid: No free fluid. US/US pelv w/transvag [id number] IMPRESSION: 1. Normal endometrium. 2. No fibroid or uterine mass. 3. No ovarian mass.
== END 2022-04-07 14:39 | disposition home or self-care (01) ==
PROVIDERS: PCP Family Medicine; Visit Provider Family Medicine
DX: R10.2 Pelvic and perineal pain (principal)
CPT/HCPCS: 76830; 76856

== ENCOUNTER → 2022-06-19 14:39 | Outpatient (BNVA) | payer OTHER, MEDICAID, SELFPAY | PROVIDERS: PCP Family Medicine; Visit Provider Nurse Practitioner Family | DX: J01.90 Acute sinusitis, unspecified (principal); B96.89 Other specified bacterial agents as the cause of diseases classified elsewhere; N30.00 Acute cystitis without hematuria | CPT/HCPCS: 81000; 87086 ==

== ENCOUNTER → 2022-08-01 14:35 | Outpatient (BNVA) | payer OTHER, MEDICAID, SELFPAY | PROVIDERS: PCP Family Medicine; Visit Provider Family Medicine | DX: G43.109 Migraine with aura, not intractable, without status migrainosus (principal); R10.31 Right lower quadrant pain; E03.9 Hypothyroidism, unspecified; R10.2 Pelvic and perineal pain; Z13.220 Encounter for screening for lipoid disorders; Z13.6 Encounter for screening for cardiovascular disorders; E86.0 Dehydration; A08.4 Viral intestinal infection, unspecified; Z79.899 Other long term (current) drug therapy | CPT/HCPCS: 74018; 80053; 80061; 81000; 83690; 84439; 84443; 84481; 85025 ==

== ENCOUNTER 2022-08-14 14:28 | Outpatient (CLI) | payer OTHER, MEDICAID, SELFPAY ==
--- NOTE | 2022-08-14 16:00 | US_ITS ---
WS: [id number] ULTRASOUND ABDOMEN CLINICAL INFORMATION: R10.31 - Right lower quadrant pain COMPARISON: CT 04/21/21 FINDINGS: Liver Size: Normal. Craniocaudal length: 14.7 cm. Echogenicity: Coarse Surface nodularity: None. Mass (size and location): None. Bile ducts Intrahepatic ducts: Normal. Common bile duct diameter: 0.7 cm. Gallbladder Cholecystectomy. Pancreas Normal where visualized Spleen Splenomegaly: Mild Craniocaudal length: 12.1 cm. Right kidney: Normal. Hydronephrosis: None. Size: 11.4 cm x 5.2 cm x 5.2 cm Left kidney: Normal. Hydronephrosis: None. Size: 10.9 cm x 5.4 cm x 5.3 cm. Abdominal aorta and IVC Visualized portions are normal. Ascites: None. US/US abdomen complete* [id number] IMPRESSION: 1. Normal liver size. Diffuse fatty infiltration liver. 2. Prior cholecystectomy. 3. Visualized pancreas appears normal. No fluid collections. 4. No hydronephrosis in either kidney. 5. Mild splenomegaly.
== END 2022-08-14 14:29 | disposition home or self-care (01) ==
PROVIDERS: PCP Family Medicine; Visit Provider Nurse Practitioner Family
DX: R10.31 Right lower quadrant pain (principal); K76.0 Fatty (change of) liver, not elsewhere classified; R16.1 Splenomegaly, not elsewhere classified
CPT/HCPCS: 76700

== ENCOUNTER → 2022-11-28 13:44 | Outpatient (BNVA) | payer OTHER, SELFPAY | PROVIDERS: PCP Family Medicine; Visit Provider Family Medicine | DX: E03.9 Hypothyroidism, unspecified (principal); Z12.4 Encounter for screening for malignant neoplasm of cervix; Z20.2 Contact with and (suspected) exposure to infections with a predominantly sexual mode of transmission; R30.0 Dysuria; B37.31 Acute candidiasis of vulva and vagina; R10.2 Pelvic and perineal pain; Z11.3 Encounter for screening for infections with a predominantly sexual mode of transmission | CPT/HCPCS: 81000; 84439; 84443; 84481; 87491; 87591; 87624; 87661 ==

== ENCOUNTER 2023-01-18 14:48 | Emergency (ER) | payer OTHER, SELFPAY ==
[2023-01-18 14:59] VITALS: BP 124/86; PULSE 78; RESP 17; TEMP 36.7; O2SAT 99
[2023-01-18] MEDS: metoclopramide 5 mg/mL SDV 2 mL 10 MG IVP (16:33)
[2023-01-18] MEDS: ketorolac 30 mg/mL INJ IVP (16:33)
[2023-01-18] MEDS: diphenhydrAMINE 50 mg/mL SDV 1mL IVP (16:34)
[2023-01-18] MEDS: sodium chloride 0.9% 1,000 ML 999 ML IV (16:34)
--- NOTE | 2023-01-18 16:55 | W.ED.HA ---
HPI - Headache General: Chief Complaint: Headache Stated Complaint: dr oneal, neck pain, headache Time Seen by Provider: 01/18/23 15:37 History of Present Illness: Patient presents to the ER with a chief complaint of migraine since noon yesterday. Patient is light sensitive, hearing sensitive, and movement sensitive. Patient is already taken her migraine medicine Maxalt and Tylenol 3 without relief. Patient says she went to her family practice doctor today and since she was having neck pain as well they wanted her to come over here and be checked out for meningitis. Patient denies any fever or chills at this time. Patient does states she has some nausea. Patient states her headache started out as her typical migraine behind her left eye forehead region. Patient also states her neck is hurting any paraspinal muscular bilaterally but patient still has good range of motion in all directions. Review of Systems General: Reports: 10 or more systems reviewed and unremarkable except in HPI and below PFSH ED PFSH: Medical History Constipation Surgical History H/O bilateral salpingectomy (~06/29/21) laparoscopic bilateral salpingectomy with fulguration of endometriosis Dr. Servin H/O tubal ligation S/P cholecystectomy 2013 H/O section Family History Father Hyperlipidemia Hypertension Stroke Heart disease Mother Hyperlipidemia Thyroid disease Denies family history of Colon cancer Ovarian cancer Diabetes Breast cancer Uterine cancer Social History Smoking and tobacco/nicotine status: never used tobacco/nicotine Substance/Drug Use: never Female Reproductive History: Spontaneous abortions: No Physical Exam Const: COMMON NORMALS: no acute distress, average body habitus, patient oriented x3, no limitations, healthy appearing, alert and well nourished HENMT: COMMON NORMALS: normocephalic, atraumatic, hearing grossly normal bilaterally, external ears normal, Normal external nose present, moist oral mucous membranes and oropharynx normal HEAD & SCALP: normocephalic and atraumatic NOSE: Normal external nose present EXTERNAL EAR: Yes external ears normal Eye: COMMON NORMALS: Equal, round and reactive pupils present, EOMs intact bilaterally, conjunctivae normal and no scleral icterus CONJUNCTIVA: Yes conjunctivae normal PUPIL: Yes Equal, round and reactive pupils present Neck/C-Spine: COMMON NORMALS: full ROM (Tender and paraspinal muscular's bilaterally equal), no lymphadenopathy, supple, no JVD and Thyroid normal THYROID: Thyroid normal Chest: COMMONS NORMALS: normal inspection of the chest and normal palpation of entire chest wall Resp: COMMON NORMALS: normal respiratory effort, No retractions, No use of accessory muscles and clear to auscultation bilaterally AUSCULTATION: clear to auscultation bilaterally Cardio: COMMON NORMALS: no JVD, regular rate, regular rhythm, S1 normal heart sound present, S2 normal heart sound present, No gallops present (Cardio), No clicks present (Cardio), No murmurs present (Cardio) and No rub (Cardio) RATE: regular rate RHYTHM: regular rhythm HEART SOUNDS: S1 normal heart sound present and S2 normal heart sound present GI: COMMON NORMALS: Normal to inspection, nondistended, normoactive bowel sounds present, Soft to palpation, non-tender, No hepatosplenomegaly present and no masses PALPATION: Yes Soft to palpation and Yes No hepatosplenomegaly present Neuro: COMMON NORMALS: patient oriented x3 SENSORIUM/ORIENTATION: Yes alert Course Vital Signs: Vital signs: Vital Signs Temperature 98.1 F 01/18/23 14:59 Pulse Rate 79 01/18/23 17:12 Respiratory Rate 16 01/18/23 17:12 Blood Pressure 126/80 01/18/23 17:12 Pulse Oximetry 100 01/18/23 17:12 Oxygen Delivery Me thod Room Air 01/18/23 14:59 MDM - Headache Medical Decision Making Patient presents to the ER with complaints of migraine headache, nausea vomiting, and muscular neck pain. Patient had lab work that included CBC CMP ESR CRP prolactin all of which was essentially benign. Patient was given 1 L bolus of sodium chloride, Reglan 10 mg, Toradol 30 mg, Benadryl 50 mg, upon completion of all these patient's pain was much improved and patient was ready to go home. Patient be discharged home. Differential Diagnosis Likely migraine and headache; Unlikely tension headache, subarachnoid hemorrhage, meningitis, sinusitis or postconcussion syndrome Medical Records I reviewed the patient's medical records. Lab Data I reviewed the patient's lab results. 01/18/23 17:11 01/18/23 17:11 Laboratory Results WBC 8.35 10^3/uL (3.29-11.43) 01/18/23 17:11 RBC 4.66 10^6/uL (3.85-5.65) 01/18/23 17:11 Hgb 14.10 g/dL (11.27-16.99) 01/18/23 17:11 Hct 42.4 % (36-47) 01/18/23 17:11 MCV 91.0 fl (85-98) 01/18/23 17:11 MCH 30.3 pg (27-33) 01/18/23 17:11 MCHC 33.3 g/dL (30-55) 01/18/23 17:11 RDW 11.9 % (12.1-15.1) L 01/18/23 17:11 Plt Count 264 10^3/cmm (157-399) 01/18/23 17:11 MPV 9.1 fL (7.4-10.4) 01/18/23 17:11 Neut % (Auto) 47.3 % 01/18/23 17:11 Lymph % (Auto) 42.6 % 01/18/23 17:11 Sandoval % (Auto) 6.0 % 01/18/23 17:11 Eos % (Auto) 3.1 % 01/18/23 17:11 Baso % (Auto) 0.8 % 01/18/23 17:11 Neut # (Auto) 3.94 10^3/uL (1.8-7.7) 01/18/23 17:11 Lymph # (Auto) 3.6 10^3/uL (0.8-4.8) 01/18/23 17:11 Sandoval # (Auto) 0.5 10^3/uL (0.2-0.9) 01/18/23 17:11 Eos # (Auto) 0.3 10^3/uL (0.0-0.8) 01/18/23 17:11 Baso # (Auto) 0.1 10^3/uL (0.0-0.1) 01/18/23 17:11 Nucleated RBC % (auto) 0 % 01/18/23 17:11 Nucleated RBCs # 0.0 /100WBC 01/18/23 17:11 Sodium 137 mmol/L (136-145) 01/18/23 17:11 Potassium 3.6 mmol/L (3.5-5.1) 01/18/23 17:11 Chloride 106 mmol/L (98-107) 01/18/23 17:11 Carbon Dioxide 19 mmol/L (22-29) L 01/18/23 17:11 Anion Gap 15.6 (5-19) 01/18/23 17:11 BUN 8 mg/dL (6-20) 01/18/23 17:11 Creatinine 0.5 mg/dL (0.5-0.9) 01/18/23 17:11 GFR Calculation 142.1 mL/min (90-130) H 01/18/23 17:11 Glucose 89 mg/dL (65-115) 01/18/23 17:11 Calculated Osmolality 282 mOsm/kg (285-295) L 01/18/23 17:11 Calcium 8.7 mg/dL (8.5-10.5) 01/18/23 17:11 Total Bilirubin 0.4 mg/dL (0.15-1.2) 01/18/23 17:11 AST 14 U/L (0-32) 01/18/23 17:11 ALT 12 U/L (0-33) 01/18/23 17:11 Alkaline Phosphatase 63 U/L (35-105) 01/18/23 17:11 C-Reactive Protein 3.0 mg/L (0.0-4.9) 01/18/23 17:11 Total Protein 6.6 g/dL (6.6-8.7) 01/18/23 17:11 Albumin 4.0 g/dL (3.5-5.2) 01/18/23 17:11 Globulin 2.6 g/dL (1.3-4.6) 01/18/23 17:11 Procalcitonin 0.03 ng/mL (0-0.5) 01/18/23 17:11 No radiology studies performed this visit Discharge Plan Discharge Clinical Impression: Migraine Condition: Stable Prescriptions: No Action rizatriptan 10 mg tablet,disintegrating See Rx Instructions .ROUTE .COMPLEX Rx Instructions: DISSOLVE 1 TABLET ON TONGUE EVERY 2 HOURS NEEDED FOR MIGRAINE HEADACHE, MAX DAILY DOSE: 2 DOSES; MAY REPEAT ONCE 2 HOURS AFTER FIRST DOSE Referrals: Kari Mckeon MD [Primary Care Provider] - Coding Level of Care Code ED Job Training Specialist for Kirit Valadez
[2023-01-18 17:12] VITALS: BP 126/80; PULSE 79; RESP 16; O2SAT 100
[2023-01-18 17:23] LABS: Basophils # 0.1 10^3/uL (0.0-0.1); Basophils % 0.8 %; Eosinophils # 0.3 10^3/uL (0.0-0.8); Eosinophils % 3.1 %; Hematocrit 42.4 % (36-47); Lymphocytes # 3.6 10^3/uL (0.8-4.8); Lymphocytes % 42.6 %; Mean Corpuscular HGB Conc 33.3 g/dL (30-55); Mean Corpuscular Hemoglobin 30.3 pg (27-33); Mean Platelet Volume 9.1 fL (7.4-10.4); Monocytes # 0.5 10^3/uL (0.2-0.9); Neutrophils # 3.94 10^3/uL (1.8-7.7); Neutrophils % 47.3 %; Nucleated Red Blood Cells % 0 %; Platelet Count 264 10^3/cmm (157-399); Red Blood Count 4.66 10^6/uL (3.85-5.65); Red Cell Distribution Width 11.9 % (12.1-15.1); White Blood Count 8.35 10^3/uL (3.29-11.43)
[2023-01-18 17:52] LABS: Alanine Aminotransferase 12 U/L (0-33); Alkaline Phosphatase 63 U/L (35-105); Anion Gap 15.6 (5-19); Aspartate Amino Transferase 14 U/L (0-32); Blood Urea Nitrogen 8 mg/dL (6-20); Calcium 8.7 mg/dL (8.5-10.5); Carbon Dioxide 19 mmol/L (22-29); Chloride 106 mmol/L (98-107); Globulin 2.6 g/dL (1.3-4.6); Glomerular Filtration Rate 142.1 mL/min (90-130); Glucose 89 mg/dL (65-115); Osmolality Calculated 282 mOsm/kg (285-295); Potassium 3.6 mmol/L (3.5-5.1); Sodium 137 mmol/L (136-145); Total Bilirubin 0.4 mg/dL (0.15-1.2); Total Protein 6.6 g/dL (6.6-8.7)
[2023-01-18 17:57] LABS: Procalcitonin 0.03 ng/mL (0-0.5)
[2023-01-18 19:27] VITALS: BP 126/80; PULSE 79; RESP 16; TEMP 36.7; O2SAT 100
== END 2023-01-18 19:28 | disposition home or self-care (01) ==
PROVIDERS: Emergency Provider Emergency Medicine; PCP Family Medicine
DX: G43.909 Migraine, unspecified, not intractable, without status migrainosus (principal)
CPT/HCPCS: 36415; 80053; 84145; 85025; 86140; 96361; 96374; 96375; 99284; J1200; J1885; J2765; J7030

== ENCOUNTER 2023-01-23 10:57 | Emergency (ER) | payer OTHER, SELFPAY ==
[2023-01-23 11:01] VITALS: BP 116/81; PULSE 96; RESP 16; TEMP 36.7; O2SAT 97; BMI 32.5
--- NOTE | 2023-01-23 11:15 | ED_ITS ---
HPI - Neck Pain/Injury 2 General: Chief Complaint: Neck Pain/Injury Stated Complaint: neck pains, numbness on left arm Time Seen by Provider: 01/23/23 11:09 Source: patient Mode of arrival: ambulatory Limitations: no limitations History of Present Illness: 32-year-old female who states that she h as been having left sided neck pain over the last week. States she is also been having intermittent migraines. She has been seen here along with her PCP she taken Flexeril just started yesterday and states she is continue have pain. States pain is worse with palpation and movement she does have some numbness on her left side of her face and her arm. She has a headache again that she rates a 5 out of 10 and resolved when she was seen here with migraine treatment. She had no vomiting no fevers. Associated symptoms: Reports headache(s); Denies nausea Review of Systems 2 Const: Denies: fever(s), chills, body aches or change in appetite ENMT: Denies: throat pain or dental pain Card: Reports: chest pain Resp: Denies: dyspnea GI: Denies: abdominal pain, nausea, vomiting or diarrhea Musc: Reports: neck pain; Denies: back pain Skin/Breast: Denies: rash Neuro: Reports: headache(s) PFSH ED 2 PFSH: Medical History Constipation Surgical History H/O bilateral salpingectomy (~06/29/21) laparoscopic bilateral salpingectomy with fulguration of endometriosis Dr. Servin H/O tubal ligation S/P cholecystectomy 2013 H/O section Family History Father Hyperlipidemia Hypertension Stroke Heart disease Mother Hyperlipidemia Thyroid disease Denies family history of Colon cancer Ovarian cancer Diabetes Breast cancer Uterine cancer Social History Smoking and tobacco/nicotine status: never used tobacco/nicotine Substance/Drug Use: never Female Reproductive History: Date of last menstrual period: 01/20/23 S pontaneous abortions: No Physical Exam 2 Const: COMMON NORMALS: no acute distress, patient oriented x3 and healthy appearing HENMT: COMMON NORMALS: normocephalic and atraumatic HEAD & SCALP: n ormocephalic and atraumatic Eye: COMMON NORMALS: Equal, round and reactive pupils present and EOMs intact bilaterally PUPIL: Yes Equal, round and reactive pupils present Neck/C-Spine: COMMON NORMALS: supple OTHER: Tenderness noted on bilateral paraspinal neck she does have pain with range of movement as well no midline tenderness Chest: COMMONS NORMALS: normal inspection of the chest Resp: COMMON NORMALS: normal respiratory effort Cardio: COMMON NORMALS: regular rate, regular rhythm and No murmurs present (Cardio) RATE: regular rate RHYTHM: regular rhythm GI: INSPECTION: Yes normal to inspection Extremity: COMMON NORMALS: normal to inspection and full ROM Neuro: COMMON NORMALS: patient oriented x3, moves all extremities and no focal motor deficits Psych: COMMON NORMALS: mental status grossly normal, Normal thought process present and cooperative THOUGHT PROCESS: Normal thought process present Skin: COMMON NORMALS: no rashes or lesions noted and no wounds GENERAL SKIN EXAM: no rashes or lesions noted Course 2 Vital Signs: Vital signs: Vital Signs Temperature 98.1 F 01/23/23 11:01 Pulse Rate 90 01/23/23 13:15 Respiratory Rate 16 01/23/23 13:15 Blood Pressure 112/61 01/23/23 13:15 Pulse Oximetry 99 01/23/23 13:15 Oxygen Delivery Me thod Room Air 01/23/23 13:15 MDM - Neck Pain/Injury Medical Decision Making Patient presents with neck pains likely muscular in nature CT scan shows no dissection blood works normal no signs of meningitis we will place her on Naprosyn she is to ice she is to follow-up with PCP and return if worsening. Medical Records I reviewed the patient's medical records. Lab Data I reviewed the patient's lab results. 01/23/23 11:28 01/23/23 11:28 Radiology Impressions Chest X-Ray 01/23/23 11:20 IMPRESSION: No acute findings. Laboratory Results WBC 6.56 10^3/uL (3.29-11.43) 01/23/23 11:28 RBC 4.82 10^6/uL (3.85-5.65) 01/23/23 11:28 Hgb 14.50 g/dL (11.27-16.99) 01/23/23 11:28 Hct 42.4 % (36-47) 01/23/23 11:28 MCV 88.0 fl (85-98) 01/23/23 11:28 MCH 30.1 pg (27-33) 01/23/23 11:28 MCHC 34.2 g/dL (30-55) 01/23/23 11:28 RDW 11.9 % (12.1-15.1) L 01/23/23 11:28 Plt Count 305 10^3/cmm (157-399) 01/23/23 11:28 MPV 9.2 fL (7.4-10.4) 01/23/23 11:28 Neut % (Auto) 50.9 % 01/23/23 11:28 Lymph % (Auto) 36.7 % 01/23/23 11:28 Candler % (Auto) 7.3 % 01/23/23 11:28 Eos % (Auto) 3.5 % 01/23/23 11:28 Baso % (Auto) 1.1 % 01/23/23 11:28 Neut # (Auto) 3.34 10^3/uL (1.8-7.7) 01/23/23 11:28 Lymph # (Auto) 2.4 10^3/uL (0.8-4.8) 01/23/23 11:28 Candler # (Auto) 0.5 10^3/uL (0.2-0.9) 01/23/23 11:28 Eos # (Auto) 0.2 10^3/uL (0.0-0.8) 01/23/23 11:28 Baso # (Auto) 0.1 10^3/uL (0.0-0.1) 01/23/23 11:28 Nucleated RBC % (auto) 0 % 01/23/23 11:28 Nucleated RBCs # 0.0 /100WBC 01/23/23 11:28 Sodium 137 mmol/L (136-145) 01/23/23 11:28 Potassium 3.6 mmol/L (3.5-5.1) 01/23/23 11:28 Chloride 103 mmol/L (98-107) 01/23/23 11:28 Carbon Dioxide 22 mmol/L (22-29) 01/23/23 11:28 Anion Gap 15.6 (5-19) 01/23/23 11:28 BUN 13 mg/dL (6-20) 01/23/23 11:28 Creatinine 0.6 mg/dL (0.5-0.9) 01/23/23 11:28 GFR Calculation 115.1 mL/min (90-130) 01/23/23 11:28 Glucose 102 mg/dL (65-115) 01/23/23 11:28 Calculated Osmolality 284 mOsm/kg (285-295) L 01/23/23 11:28 Calcium 9.3 mg/dL (8.5-10.5) 01/23/23 11:28 Total Bilirubin 0.4 mg/dL (0.15-1.2) 01/23/23 11:28 AST 16 U/L (0-32) 01/23/23 11:28 ALT 14 U/L (0-33) 01/23/23 11:28 Alkaline Phosphatase 68 U/L (35-105) 01/23/23 11:28 Total Protein 7.3 g/dL (6.6-8.7) 01/23/23 11:28 Albumin 4.3 g/dL (3.5-5.2) 01/23/23 11:28 Globulin 3.0 g/dL (1.3-4.6) 01/23/23 11:28 All radiology interpretation(s) finalized by discharge Discharge Plan Discharge Patient Disposition: Home Clinical Impression: Neck pain Condition: Stable Prescriptions: New Naprosyn 500 mg tablet 500 mg PO BID PRN (Reason: pain) Qty: 20 0RF No Action rizatriptan 10 mg tablet,disintegrating See Rx Instructions .ROUTE .COMPLEX Rx Instructions: DISSOLVE 1 TABLET ON TONGUE EVERY 2 HOURS NEEDED FOR MIGRAINE HEADACHE, MAX DAILY DOSE: 2 DOSES; MAY REPEAT ONCE 2 HOURS AFTER FIRST DOSE cyclobenzaprine 5 mg tablet 5 mg PO TID PRN (Reason: Muscle Spasm) Discharge Orders: Discharge ED (Routine); Ordered 01/23/23 Ordered By: Felisha Hobson Referrals: Isabel Morin PA-C [Primary Care Provider] - 1-3 days Discharge Diet: Advance as tolerated Discharge Activity: Resume usual activity Patient Instructions: Neck Pain (ED) Coding Level of Care Code ED Product Support Specialist for Chg Rory
--- NOTE | 2023-01-23 11:20 | CT_ITS ---
WS: [id number] CT ANGIOGRAM CEREBRAL AND CAROTID ARTERIES HISTORY: longoria/neck pain TECHNIQUE: CT angiogram is performed of the carotid and cerebral arteries. During arterial injection imaging is obtained from the skull vertex to the aortic arch in 1.25 mm imaging. Coronal and sagittal reformats are submitted. Additional multi planar reformats of the carotid and cerebral arteries are submitted, MIP imaging also reviewed. NASCET criteria utilized. [facility] CT [facility] at least one of these dose optimization techniques: automated exposure control; mA and/or kV adjust ment per patient size (includes targeted exams where dose is matched to clinical indication); or iter ative reconstruction. CONTRAST: Omnipaque 350; 100 mL IV. DLP: 1011.30 mGy.cm COMPARISON: 04/21/[address] head: No acute intracranial hemorrhage or edema. Normal ventricles. Carotid Angiogram: Right carotid: Common carotid artery: Arises normally from the innominate artery. No significant plaque or stenosis. Internal carotid artery: No plaque or stenosis. External carotid artery: Patent. Left carotid: Common carotid artery: Arises normally from the aorta. No significant plaque or stenosis. Internal carotid artery: No plaque or stenosis. External carotid artery: Patent. Right vertebral artery: Dominant. Intact. Left vertebral artery: Small caliber vertebral artery arises from the subclavian artery. Small calibe r is diffuse with no evidence for dissection. Subclavian arteries: No stenosis or significant abnormality. Upper thorax: Normal. Thyroid gland: Normal. Osseous structures: Straightening and slight reversal the normal cervical lordosis. CEREBRAL ANGIOGRAM: Intracranial vertebral arteries: Small caliber but patent LEFT vertebral artery. Normal RIGHT vertebr al artery. Basilar artery: No significant stenosis or occlusion. No aneurysm. Intracranial Internal carotid arteries: Demonstrates no significant stenosis or plaque. Middle cerebral arteries: Normal. Anterior cerebral arteries and ACOM: Normal. Posterior cerebral arteries and PCOM's: Normal. Dural venous sinuses are normally enhancing. Mastoid air cells: Normal. Paranasal sinuses: Normal. Calvarium: Normal. IMPRESSION: 1. No significant cervical or intracranial carotid artery stenosis. No dissection. 2. Dominant RIGHT vertebral artery. Small caliber LEFT vertebral artery with no dissection.
--- NOTE | 2023-01-23 11:20 | XRR_ITS ---
PROCEDURE INFORMATION: Exam: XR Chest Exam date and time: 01/23/2023 11:30 AM Age: 32 years old Clinical indication: Pain; Angina pectoris; Additional info: Cp TECHNIQUE: Imaging protocol: Radiologic exam of the chest. Views: 1 view. COMPARISON: CR XR chest 1V portable [id number] 02/11/2022 12:46 PM FINDINGS: Lungs: Unremarkable. No consolidation. Pleural spaces: Unremarkable. No pleural effusion. No pneumothorax. Heart/Mediastinum: Unremarkable. No cardiomegaly. Bones/joints: Unremarkable. XR/XR chest 1V portable [id number] IMPRESSION: No acute findings.
[2023-01-23 11:31] VITALS: PULSE 88; RESP 20; O2SAT 98
[2023-01-23 11:38] LABS: Basophils # 0.1 10^3/uL (0.0-0.1); Basophils % 1.1 %; Eosinophils # 0.2 10^3/uL (0.0-0.8); Eosinophils % 3.5 %; Hematocrit 42.4 % (36-47); Lymphocytes # 2.4 10^3/uL (0.8-4.8); Lymphocytes % 36.7 %; Mean Corpuscular HGB Conc 34.2 g/dL (30-55); Mean Corpuscular Hemoglobin 30.1 pg (27-33); Mean Platelet Volume 9.2 fL (7.4-10.4); Monocytes # 0.5 10^3/uL (0.2-0.9); Monocytes % 7.3 %; Neutrophils # 3.34 10^3/uL (1.8-7.7); Neutrophils % 50.9 %; Nucleated Red Blood Cells % 0 %; Platelet Count 305 10^3/cmm (157-399); Red Blood Count 4.82 10^6/uL (3.85-5.65); Red Cell Distribution Width 11.9 % (12.1-15.1); White Blood Count 6.56 10^3/uL (3.29-11.43)
[2023-01-23] MEDS: sodium chloride 0.9% 1,000 ML 999 ML IV (11:44)
[2023-01-23] MEDS: ketorolac 30 mg/mL INJ IVP (11:45)
[2023-01-23] MEDS: metoclopramide 5 mg/mL SDV 2 mL 10 MG IVP (11:47)
[2023-01-23] MEDS: diphenhydrAMINE 50 mg/mL SDV 1mL IVP (11:50)
[2023-01-23 11:51] LABS: Alanine Aminotransferase 14 U/L (0-33); Albumin Level 4.3 g/dL (3.5-5.2); Alkaline Phosphatase 68 U/L (35-105); Anion Gap 15.6 (5-19); Aspartate Amino Transferase 16 U/L (0-32); Blood Urea Nitrogen 13 mg/dL (6-20); Calcium 9.3 mg/dL (8.5-10.5); Carbon Dioxide 22 mmol/L (22-29); Chloride 103 mmol/L (98-107); Glomerular Filtration Rate 115.1 mL/min (90-130); Glucose 102 mg/dL (65-115); Osmolality Calculated 284 mOsm/kg (285-295); Potassium 3.6 mmol/L (3.5-5.1); Sodium 137 mmol/L (136-145); Total Bilirubin 0.4 mg/dL (0.15-1.2); Total Protein 7.3 g/dL (6.6-8.7)
[2023-01-23 12:14] VITALS: BP 120/77; PULSE 81; RESP 16; O2SAT 99
[2023-01-23] MEDS: iohexol 350 mg/mL 500 mL Btl (per mL) IV (12:39)
[2023-01-23 13:15] VITALS: BP 112/61; PULSE 90; RESP 16; O2SAT 99
[2023-01-23 13:39] VITALS: BP 102/63; PULSE 70; RESP 16; O2SAT 97
== END 2023-01-23 13:40 | disposition home or self-care (01) ==
PROVIDERS: Emergency Provider Emergency Medicine; PCP Physician Assistant
DX: M54.2 Cervicalgia (principal)
CPT/HCPCS: 36415; 70496; 70498; 71045; 80053; 85025; 96361; 96374; 96375; 99285; J1200; J1885; J2765; J7030; Q9967

== ENCOUNTER → 2024-05-14 14:49 | Outpatient (BNVA) | payer OTHER, SELFPAY | PROVIDERS: PCP Physician Assistant; Visit Provider Internal Medicine Cardiovascular Disease | DX: R07.9 Chest pain, unspecified (principal) | CPT/HCPCS: 93005 ==

== ENCOUNTER 2024-09-09 14:54 | Outpatient (CLI) | payer OTHER, SELFPAY ==
--- NOTE | 2024-09-09 15:00 | US_ITS ---
WS: [id number] US pelvis lmt w transvag HISTORY: ABNORMAL UTERINE BLEEDING COMPARISON: None available. Patient refused transvaginal imaging. Uterus: 9.6 cm x 5.7 cm x 4.3 cm. Uterus is slightly enlarged and anteverted. Limited detail otherwise. Fibroid would be difficult to exclude. Endometrium: 0.3 cm. Poorly visualized without transvaginal imaging. Limited evaluation of the endometrium. Neither ovary is identified. No adnexal mass. No free fluid in the cul-de-sac. US/US pelvis lmt w transvag IMPRESSION: 1. Limited pelvic ultrasound evaluation. Patient refused transvaginal imaging. 2. Uterus is mildly enlarged. Otherwise limited evaluation. 3. Limited evaluation of the endometrium. Recommend transvaginal pelvic ultras ound imaging for abnormal vaginal bleeding. 4. Neither ovary identified.
== END 2024-09-09 14:55 | disposition home or self-care (01) ==
LOC: RAD 14:55
PROVIDERS: PCP Physician Assistant; Visit Provider Nurse Practitioner Family
DX: N93.9 Abnormal uterine and vaginal bleeding, unspecified (principal)
CPT/HCPCS: 76830; 76857

== ENCOUNTER 2024-09-29 16:10 | Outpatient (CLI) | payer OTHER, SELFPAY ==
--- NOTE | 2024-09-29 16:17 | US_ITS ---
WS: [id number] US transvaginal [id number] HISTORY: ABNORMAL UTERINE BLEEDING COMPARISON: 09/09/2024 Uterus: 8.9 cm x 4.8 cm x 4.3 cm. Normal size anteverted uterus. No fibroid or mass. Endometrium: 1.0 cm. Normal heterogeneity. No mass identified. Right ovary: 3.2 cm x 2.6 cm x 3.8 cm. Normal size ovary. Dominant follicle 3.0 x 2.7 x 2.4 cm. Normal vascularity. Left ovary: 3.1 cm x 2.7 cm x 3.2 cm. Normal size and vascularity, no cystic or solid masses. Small corpus luteum cyst 1.6 x 1.3 x 1.3 cm. Small amount of free fluid adjacent to the ovary. Small amount of free fluid in the cul-de-sac. US/US transvaginal [id number] IMPRESSION: 1. Normal endometrium. 2. Dominant follicle RIGHT ovary, maximum diameter 3.0 cm. 3. Small amount of physiologic free fluid in the cul-de-sac.
== END 2024-09-29 16:11 | disposition home or self-care (01) ==
PROVIDERS: PCP Physician Assistant; Visit Provider Nurse Practitioner Family
DX: N83.12 Corpus luteum cyst of left ovary (principal); N93.9 Abnormal uterine and vaginal bleeding, unspecified
CPT/HCPCS: 76830

== ENCOUNTER 2024-10-07 08:55 | Outpatient (CLI) | payer OTHER, SELFPAY ==
--- NOTE | 2024-10-07 09:07 | MR_ITS ---
WS: [id number] MRI HEAD WITHOUT CONTRAST TECHNIQUE: Sagittal T1, T2 axial, T2 axial FLAIR, axial and coronal T1 images, axial susceptibility weighted imaging, axial diffusion weighted images, and coronal T2 images were obtained. Patient declined IV contrast CLINICAL INFORMATION: HEADACHE/CERVICALGIA/DIZZINESS COMPARISON: None. FINDINGS: No evidence of restricted diffusion to suggest acute ischemia. Ventricular system and basilar cisterns are patent. Normal posterior fossa. Normal vascular flow voids at the skull base. No extra-axial fluid collections. No evidence of mass or mass effect. Paranasal sinuses and mastoid air cells are well aerated. No hemosiderin on the susceptibility weighted images. Normal optic chiasm and pituitary infundibulum. Normal cavernous sinuses and Meckel's cave. No other acute findings. MR/MR head wo con* [id number] IMPRESSION: 1. No evidence of restricted diffusion to suggest acute ischemia. 2. No suspicious intracranial signal abnormalities. Normal dos santos-white differen tiation. 3. No hemosiderin on the susceptibly weighted images. 4. No other suspicious findings.
== END 2024-10-07 08:56 | disposition home or self-care (01) ==
PROVIDERS: PCP Physician Assistant; Visit Provider Nurse Practitioner Family
DX: R51.9 Headache, unspecified (principal); R42 Dizziness and giddiness
CPT/HCPCS: 70551; 70553

== ENCOUNTER 2024-11-24 11:25 | Outpatient (CLI) | payer OTHER, SELFPAY ==
--- NOTE | 2024-11-24 | ECG_ITS ---
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 Interpretive Statements EXERCISE STRESS TEST EXERCISE DATA: The patient was exercised by Javed protocol. Baseline heart rate was 70 beats per minute. Baseline blood pressure was 104/69 millimeters of mercury. Maximal predicted heart rate was 185 beats per minute. Maximum heart rate achieved was 164 which was 88% of the maximum predicted heart rate. Maximum blood pressure dhe191/47 millimeters of mercury. Total exercise time was 6 minutes. Maximum METs achieved was 7.0. The reason for ending the test was completion of protocol. The patient complained of shortness of breath, dizziness and lightheadedness during the stress test, which then resolved at the end of the test. ELECTROCARDIOGRAM: BASELINE: Showed sinus rhythm, normal axis, no significant ST-T changes at the baseline noted. [] EXERCISE: At the peak exercise level, [] No significant ST-T changes suggestive of ischemia noted. [] RECOVERY: During the recovery period, heart rate dropped appropriately. No significant ST-T changes in the recovery suggestive of ischemia noted. [] CONCLUSION: 1. Exercise capacity is fair 2. Heart rate response was appropriate 3. Blood pressure response was appropriate 4. Symptoms not suggestive of ischemia. 5. Stress test does not show evidence of ischemia Electronically Signed On 12-07-2024 11:52:29 CDT by Amren Pennington M.D. [email or web address]
[2024-11-24 11:43] VITALS: BMI 32.5
[2024-11-24 12:06] VITALS: BP 129/67; PULSE 88
--- NOTE | 2024-11-24 12:19 | USCV_ITS ---
Arianna Gomez Age: 34 Gender: F : 1990 Exam Date: 11/24/2024 12:42 Ordering Phys: Cary Haro MD ([email or web address]) Technologist: Exam Location: [facility] – [place] Indication: cp sob BP: 130 / 68 HR: 78 Rhythm: Sinus Technical Quality: Adequate MEASUREMENTS (Male / Female) Normal Values 2D ECHO LVOT Diameter 2.0 cm LV Ejection Fraction MOD 4C 66.1 % LV Ejection Fraction MOD 2C 73.5 % LV Ejection Fraction 2C AL 73.6 % LA Diameter 2.5 cm RA Systolic Volume 4C AL 27.0 ml RA Systolic Volume 4C MOD 26.4 ml LA Sys Volume AL 34.6 cm cubed LA Sys Volume Index AL 17.1 cm cubed/m squared Aorta at Sinotubular Diameter 2.4 cm M-MODE LA Ao Ratio MM 1.3 AV Cusp Separation MM 2.5 cm DOPPLER AV Peak Velocity 130.0 cm/s LVOT Peak Velocity 105.0 cm/s AV Area Cont Eq vti 2.6 cm squared AV Area Cont Eq pk 2.6 cm squared MV Peak Velocity 106.0 cm/s MV Area PHT 3.9 cm squared Mitral E to A Ratio 1.2 TV Peak Velocity 162.0 cm/s TR Peak Velocity 239.0 cm/s TR Peak Gradient 22.8 mmHg PV Peak Velocity 111.0 cm/s FINDINGS Left Ventricle Normal left ventricular size, systolic function and wall thickness with no regional wall motion abnormality. Left ventricular ejection fraction is 60 %. Normal left ventricular diastolic function. Right Ventricle Normal right ventricular size and systolic function. Right Atrium Normal right atrial size. Left Atrium Normal left atrial size. IA Septum Normal appearance of the interatrial septum. Mitral Valve Mildly thickened mitral valve. No mitral valve stenosis. Trace mitral valve regurgitation. Aortic Valve Normal aortic valve structure. No aortic valve stenosis, trace regurgitation. Tricuspid Valve Normal tricuspid valve structure. No tricuspid valve stenosis or regurgitation. Normal pulmonary pressure. Pulmonic Valve Normal pulmonic valve structure. No pulmonic valve stenosis or regurgitation. Pericardium No pericardial effusion. Aorta Normal diameter of the aortic root and ascending thoracic aorta. IVC Normal IVC diameter. CONCLUSIONS Normal left ventricular size, systolic function and wall thickness with ejection fraction of 60 %. Normal right ventricular size and systolic function. No significant valvular abnormalities. Cary Haro MD (Electronically Signed) Final Date: 27 November 2024 20:54 S
== END 2024-11-24 11:26 | disposition home or self-care (01) ==
LOC: CDL 11:28
PROVIDERS: PCP Nurse Practitioner Family; Visit Provider Internal Medicine Cardiovascular Disease
DX: R07.9 Chest pain, unspecified (principal); R06.02 Shortness of breath; R55 Syncope and collapse; I05.9 Rheumatic mitral valve disease, unspecified
CPT/HCPCS: 93017; 93306